=== PATIENT | female | born 1945 | race Caucasian/White ===

== ENCOUNTER 2018-03-03 19:05 | Inpatient (IN) | payer MEDICARE ==
[~2018-03-03] VITALS: Ht 154.9 cm; Wt 96.5 kg
--- NOTE | ~2018-03-03 | EC ---
PATIENT:GLEN CONNER DATE OF SERVICE: 03/03/18 SEX: F MEDICAL RECORD: [id number] DATE OF : [birth year] LOCATION:D.M2 D.210 AGE OF PATIENT: 72 ADMISSION DATE: 03/03/18 REFERRING PHYSICIAN: INTERPRETING PHYSICIAN: VICKI VILLEGAS MD ECHOCARDIOGRAM REPORT ECHO CHARGES 4 ECHO COMPLETE Date: 03/08 CLINICAL DIAGNOSIS: CHF ECHOCARDIOGRAPHIC MEASUREMENTS (adult normal given) AC root (d.<3.7cm) 3.4 cm LV Septum d (<1.2 cm> 1.6 cm Valve Excursion 1.1 cm LV Septum (systole) 1.8 cm Left Atria (s.<4.0cm> 4.5 cm LVPW d(<1.2cm) 1.7 cm RV (d.<2.3cm) 4.5 cm LVPW (sytole) 1.9 cm LV diastole(<5.6CM) 5.4 cm MV E-F(>70mm/sec) cm LV systole 3.6 cm LVOT Diameter 1.5 cm MV exc.(>10mm) 1.3 cm Est.ejection fraction (50-75%) % DOPPLER: LVIT cm/sec A 97.0 cm/sec E 168 cm/sec LA cm/sec RVSP 23 mmHg LVOT 128 cm/sec AOP1/2T m/s Asc. Ao 250 cm/sec RVOT cm/sec RA cm/sec PA 134 cm/sec AV Gradient Peak 25.01mmHg AV Mean 14.10mmHg AV Area 1.0 cm MV Gradient Peak 16.19mmHg MV Mean 4.26 mmHg MV Area cm COMMENTS: Administration Manager: Nishi KENYON Medical Insurance Biller: 2 Dr. Bergeron TAPE# PACS Pericardial Effusion N DATE OF SERVICE: 03/08/2018 PROCEDURE: Echocardiogram. FINDINGS: 1. Left ventricular chamber size is within normal limits. Left ventricular systolic function is normal. Overall ejection fraction estimated at 55% to 60%. 2. Left atrium is enlarged at 4.5 cm. Right atrium and right ventricle chamber sizes are as well moderately dilated. 3. Valvular structures have normal structure and motion. ECHOCARDIOGRAM REPORT [id number] GLEN CONNER 4. Doppler interrogation reveals mild aortic insufficiency, moderate mitral regurgitation, trace tricuspid regurgitation, no other valvular insufficiency or stenosis and pulmonary systolic pressure is estimated at 23 mmHg. 5. No evidence of pericardial effusion or left ventricular thrombus. TRANSINT:[id number] Voice Confirmation ID: [id number] DOCUMENT ID: [id number] VICKI VILLEGAS MD at 1230 CC: [id number] DICTATION DATE: 03/08/18 1554 SETTLEMENT CLERK: 03/08/18 1611 ADM IN [place] [id number] [place] [id number]
--- NOTE | ~2018-03-03 | MORECARE ---
CASE MANAGEMENT DISCHARGE SUMMARY PATIENT: GLEN CONNER UNIT: [id number] ADM DATE: 03/03/18 AGE: 72 : 45 SEX: F ROOM/BED: D.2109 AUTHOR: LILIYA, SAMPLE SUPERVISOR PHYSICIAN: REFERRING PHYSICIAN: HEATHER SURESH MD DATE OF SERVICE: 03/03/18 Discharge Plan Patient Name: GLEN CONNER [facility]: [facility] : 1945 Planned Disposition: Nursing Facility [facility] Cert Anticipated Discharge Date: 03/23/18 Discharge Date: Expected LOS: 20 Initial Reviewer: [email or web address] Initial Review Date: 03/09/2018 Generated: 03/23/18 12:16 pm Comments DCP- Discharge Planning Updated by [email or web address]: Sean Pete on 03/23/18 10:[address] Patient Name: GLEN CONNER Encounter No: [id number] : 1945 Primary Insurance: MEDICARE A & B Anticipated DC Date: 03-23-2018 Planned Disposition: Nursing Facility [facility] Cert External Planned Provider: [facility], MEDICARE REHAB [facility] DCP follow-up note: CM RECEIVED DISCHARGE ORDER, CALLED AND SPOKE TO [facility], THEY WILL SCHOOL AGE PROGRAM ASSOCIATE PT TODAY AT 1230 IN [place]. PT NOTIFIED, IN AGREEMENT WITH DISCHARGE BACK TO [facility]. CM FAXED DISCHARGE INFORMATION TO [facility] AT [phone], CALL NURSE REPORT TO [facility] AT [facility] AT [phone]. [facility] TO [facility] AGE PROGRAM ASSOCIATE FOR 1230 TODAY. LILIYA Sheldon DCP- Discharge Planning Updated by [id number]: Sean Pete on 03/22/18 3:[address] Patient Name: GLEN CONNER Encounter No: [id number] : 1945 Primary Insurance: MEDICARE A & B Anticipated DC Date: 03-23-2018 Planned Disposition: Nursing Facility [facility] Cert External Planned Provider: [facility], MEDICARE REHAB BED DCP follow-up note: CM CALLED AND LEFT MESSAGE FOR [facility], , NOTIFYING OF PLANNED DISCHARGE BACK TO ALF FACILITY TOMORROW, 03-23-18. CM FAXED REFERRAL UPDATE TO [facility] AT [phone]. CM SPOKE TO PT IN ROOM, PT IN AGREEMENT WITH DISCHARGE BACK TO [facility] TOMORROW. FOR DISHCHARGE BACK TO [facility] IN [place], FAX DISCHARGE INFORMATION TO [facility] AT [phone], CALL NURSE REPORT TO [facility] AT [phone]. [facility] TO [facility]OL AGE PROGRAM ASSOCIATE. Sean Pete, CASE MANAGEMENT DCP- Discharge Planning Updated by [id number]: Carolyn Vieira on 03/22/18 11:[address] SPOKE WITH AMY PHELPS, WITH [facility]. SHE STATED THAT THE PATIENT HAS A CHAIR OF [facility]-S AT [facility] @ 1100. SHE WILL PUT IN A NOTE TO THIS, BUT SHE ALSO STATED THAT IF THE PATIENT COULD NOT DISCHARGE BY TOMORROW WHERE SHE COULD ADMIT ON WEDNESDAY- THEN SHE WOULD NOT BE ABLE TO ADMIT TO THE DIALYSIS UNIT UNTIL WEDNESDAY OF THE NEXT WEEK. SHE SPOKE WITH DR BLEVINS AND HE IS OK WITH DISCHARGE TOMORROW. THE ABOVE INFORMATION RELAYED TO JOSE ELIAS FAJARDO APN WITH DR SURESH AND SHE STATED WILL PLAN TO DISCHARGE TOMORROW. DCP- Discharge Planning Updated by [id number]: Sean Pete on 03/21/18 3:[address] Patient Name: GLEN CONNER Encounter No: [id number] : 1945 Primary Insurance: MEDICARE A & B Anticipated DC Date: 03-22-2018 Planned Disposition: Nursing Facility [facility] External Planned Provider: [facility], MEDICARE REHAB BED DCP follow-up note: CM RECEIVED CALL FROM [facility] REQUESTING UPDATE. [facility] PREFERS MWF DIALYSIS SCHEDULE BUT THEY WILL ACCOMODATE TTS SCHEDULE IF MWF IS NOT AVAILABLE. CM FAXED REFERRAL UPDATE TO [facility] AT [phone]. CM SPOKE TO PT IN ROOM, PT IN AGREEMENT WITH DISCHARGE BACK TO [facility] WHERE SHE LIVES. IMPORTANT MESSAGE FROM MEDICARE PROVIDED AND DISCUSSED. FOR DISHCHARGE BACK TO [facility] IN [place], FAX DISCHARGE INFORMATION TO [facility] AT [phone], CALL NURSE REPORT TO [facility] AT [phone]. [facility] TO [facility]ANGE [facility] AGE PROGRAM ASSOCIATE. Sean Pete, CASE MANAGEMENT DCP- Discharge Planning Updated by [email or web address]: Iris Beal on 03/09/18 7:[address] Patient Name: GLEN CONNER Admission Status: CO Accout number: [id number] Admission Date: 03-03-2018 : 1945 Admission Diagnosis:SHORTNESS OF BREATH Attending: HEATHER SURESH Current LOS: 6 Anticipated DC Date: 03-12-2018 Planned Disposition: Nursing Facility [facility] Primary Insurance: MEDICARE A & B Discharge Planning Comments: CM MET WITH PATIENT REGARDING D/C NEEDS AND PLANS. PATIENT STATED SHE LIVES AT [facility] AND WILL RETURN THERE AT DISCHARGE BY FACILITY [place]. PATIENT STATED SHE SITS IN A WHEELCHAIR DAILY AND STAFF HELPS HER TRANSFER. PATIENT WAS RECENTLY IN HOSPITAL AT [place] AND WAS TRANSFERED HERE BY AMBULANCE. PATIENT WAS PUT ON OXYGEN THE LAST FEW DAYS. PATIENT STATED THE STAFF WILL [facility] HOME HEALTH NOT NEEDED IN FACILITY. PATIENT STATED JASON GIBSON (SISTER) IS THE PERSON TO NOTIFY IF NEEDED. CM WILL CONTINUE TO FOLLOW PATIENT WITH D/C NEEDS AND PLANS. PCP DR. CHEEMA [facility] JASONBrian GIBSON (SISTER) [phone] Production Manager: Iris Beal DCPIA - Discharge Planning Initial Assessment Updated by [id number]: Iris Beal on 03/09/18 7:57 am * Is the patient Alert and Oriented? Yes * How many steps to enterexit or inside your home? * PCP DR. CHEEMA * Pharmacy IN HOUSE * Preadmission Environment [employer] * ADLs Partial Dependent * Partial ADLs (Assistance needed) Ambulation Bathing Dressing Medication Management Toileting Transfers * Equipment Oxygen Wheelchair * Other Equipment [facility] IF NEEDED * List name and contact numbers for known caregivers / representatives who currently or will assist patient after discharge: JASON GIBSON (SISTER) [phone] * Verbal permission to speak to the caregivers and representatives has been obtained from the patient. Yes * Community resources currently utilized None * Additional services required to return to the preadmission environment? Yes * Can the patient safely return to the preadmission environment? Yes * Has this patient been hospitalized within the prior 30 days at any hospital? Yes External Providers External Provider: [facility] Next Contact Date: 03/22/2018 Service Request Date: Service Type: Resolution: Reviewer: Comments: Coverage Notice Reviewer: [email or web address] Clarence Pete Notice Issued Date-Time: 03/21/2018 14:25 Notice Type: IM Discharge Notice Notice Delivered To: Patient Relationship to Patient: Substation Electrician Supervisor Name: Delivery Method: HAND - Hand Delivered [place] Days: Prior Verbal Notification: Recipient Understood Notice: Yes Recipient Signature: Yes Med Rec Note Co-signed by Attending: Coverage Notice Comment: Patient Name: GLEN CONNRE Page [phone] All edits/amendments must be made on the electronic document DICTATION DATE: 03/23/181115 AEGIS OPERATIONS SPECIALIST: 03/23/181115 RPT#: [id number] DC DATE: STATUS: ADM IN [facility] [address] [place] [address] END OF REPORT
[2018-03-03 20:00] VITALS: BP 151/45
[2018-03-03 20:06] VITALS: BP 151/45
[2018-03-03] MEDS ORDERED: METOPROLOL TART50 MG PO (21:00)
[2018-03-03] MEDS ORDERED: METOLAZONE5 MG PO (21:00)
[2018-03-03] MEDS ORDERED: BUMEX2 MG PO (21:03)
[2018-03-03] MEDS ORDERED: COZAAR50 MG PO (21:04)
[2018-03-03] MEDS ORDERED: FUROSEMIDE10 MG/M1 IV (21:06)
[2018-03-03] MEDS ORDERED: ESTRACE1 MG PO (21:07)
[2018-03-03] MEDS ORDERED: LEVOTHYROXINE150 MCG PO (21:07)
[2018-03-03] MEDS ORDERED: LOPRESSOR25 MG PO (21:08)
[2018-03-03] MEDS ORDERED: ISOSORBIDE MONO30 M1 PO (21:09)
[2018-03-03] MEDS ORDERED: LASIX80 MG (21:10)
[2018-03-03] MEDS ORDERED: HUMULIN R100 U/ML SC (21:14)
[2018-03-03] MEDS ORDERED: GLIMEPIRIDE4 MG PO (21:18)
[2018-03-03] MEDS ORDERED: K-DUR20 MEQ (21:18)
[2018-03-03] MEDS ORDERED: ROCEPHIN 1 GM/D51 G1 IV (21:20)
[2018-03-03] MEDS ORDERED: BAYER CHEWABLE81 MG PO (21:21)
[2018-03-03] MEDS ORDERED: CALTRATE 600 M600 M1 PO (21:22)
[2018-03-03] MEDS ORDERED: MAG-OX 400 MG400 MG PO (21:22)
[2018-03-03] MEDS ORDERED: HYDROCODON-ACE1 EAC7 PO (21:23)
[2018-03-03] MEDS ORDERED: ONDANSETRON4 MG/2 M3 IV (21:24)
[2018-03-03] MEDS ORDERED: ROBITUSSIN DM 110 ML PO (21:25)
[2018-03-03] MEDS ORDERED: ACETAMINOPHEN500 M1 PO (21:26)
[2018-03-04] VITALS: BP 151/48
[2018-03-04 00:21] LABS: HEMATOCRIT 25.6 % (36.0-48.0); HEMOGLOBIN 8.2 g/dL (12-16); LYMPHOCYTES 4.3 % (15-50); MCH 27.1 pg (26.0-34.0); MCV 84.5 fL (80.0-100.0); NEUTROPHILS 89.8 % (40-80); PLATELET COUNT 235 10x3/uL (130-400); RBC 3.03 10x6/uL (4.00-5.40); WBC 15.2 10x3/uL (4.8-10.8)
[2018-03-04 00:51] LABS: ALBUMIN 2.3 g/dL (3.4-5.0); ANION GAP 9.6 mmol/L (8-16); BILIRUBIN - TOTAL 0.31 mg/dL (0.2-1.3); CALCIUM 8.3 mg/dL (8.5-10.1); CARBON DIOXIDE 36.2 mmol/L (21.0-32.0); CREATININE - SERUM 3.7 mg/dL (0.6-1.3); POTASSIUM - SERUM 3.8 mmol/L (3.5-5.1); PROTEIN - SERUM 7.3 g/dL (6.4-8.2)
[2018-03-04 04:29] LABS: BASOPHILS 0.1 % (0-2); EOSINOPHILS 1.9 % (0-7); HEMATOCRIT 26.4 % (36.0-48.0); IMMATURE GRANULOCYTES 0.4 % (0-5); LYMPHOCYTES 4.8 % (15-50); MCH 26.1 pg (26.0-34.0); MCHC 30.3 g/dL (31.0-37.0); MEAN PLATELET VOLUME 9.2 fL (7.4-10.4); NEUTROPHILS 86.8 % (40-80); PLATELET COUNT 215 10x3/uL (130-400); RBC 3.07 10x6/uL (4.00-5.40); RDW 14.9 % (11.5-14.5); WBC 15.2 10x3/uL (4.8-10.8)
[2018-03-04 04:55] VITALS: BP 122/45
[2018-03-04 04:55] LABS: ALBUMIN 2.2 g/dL (3.4-5.0); ANION GAP 10.5 mmol/L (8-16); BILIRUBIN - TOTAL 0.32 mg/dL (0.2-1.3); CALCIUM 8.4 mg/dL (8.5-10.1); CARBON DIOXIDE 34.1 mmol/L (21.0-32.0); CREATININE - SERUM 3.7 mg/dL (0.6-1.3); POTASSIUM - SERUM 3.6 mmol/L (3.5-5.1); PROTEIN - SERUM 7.1 g/dL (6.4-8.2)
[2018-03-04 09:23] VITALS: BP 146/59
[2018-03-04 11:50] VITALS: BP 117/78
[2018-03-04 12:24] VITALS: BMI 43.9
[2018-03-04 13:45] VITALS: Ht 154.9 cm; Wt 96.5 kg
[2018-03-04 14:34] LABS: APPEARANCE CLEAR (CLEAR); BILIRUBIN NEGATIVE (NEGATIVE); COLOR YELLOW (YELLOW); GLUCOSE NEGATIVE (NEGATIVE); KETONE NEGATIVE (NEGATIVE); NITRITE NEGATIVE (NEGATIVE); PROTEIN NEGATIVE (NEGATIVE); UROBILINOGEN NORMAL (NORMAL)
[2018-03-04 14:38] LABS: BACTERIA MODERATE /hpf (NONE SEEN); MUCUS <1+ /lpf (NONE SEEN); RED CELLS - URINE 0-5 /hpf (0-5)
[2018-03-04 15:00] LABS: ERYTHROCYTE SEDIMENTATION RATE 125 mm/hr (0-30)
[2018-03-04 15:03] LABS: CREATININE - URINE 39.5 mg/dL (30-125); PRO/CRE RATIO URINE 0.6 mg/g; PROTEIN - URINE 24.7 mg/dL (0.0-11.9)
[2018-03-04 15:48] VITALS: BP 138/52
[2018-03-04 21:37] VITALS: BP 145/52
[2018-03-05 01:32] VITALS: BP 144/52
[2018-03-05 06:11] VITALS: BP 125/45
[2018-03-05 09:07] VITALS: BP 111/41
[2018-03-05 09:52] LABS: BASOPHILS 0.1 % (0-2); EOSINOPHILS 3.5 % (0-7); HEMATOCRIT 25.7 % (36.0-48.0); HEMOGLOBIN 7.9 g/dL (12-16); IMMATURE GRANULOCYTES 0.4 % (0-5); LYMPHOCYTES 4.7 % (15-50); MCH 26.2 pg (26.0-34.0); MCHC 30.7 g/dL (31.0-37.0); MCV 85.4 fL (80.0-100.0); MEAN PLATELET VOLUME 9.3 fL (7.4-10.4); MONOCYTES 4.5 % (2-11); NEUTROPHILS 86.8 % (40-80); PLATELET COUNT 239 10x3/uL (130-400); RBC 3.01 10x6/uL (4.00-5.40); RDW 14.5 % (11.5-14.5); WBC 13.9 10x3/uL (4.8-10.8)
[2018-03-05 10:16] LABS: ANION GAP 10.5 mmol/L (8-16); CALCIUM 8.2 mg/dL (8.5-10.1); CARBON DIOXIDE 35.1 mmol/L (21.0-32.0); CREATININE - SERUM 3.6 mg/dL (0.6-1.3); POTASSIUM - SERUM 3.6 mmol/L (3.5-5.1)
[2018-03-05 12:29] VITALS: BP 130/36
[2018-03-05 16:54] VITALS: BP 117/33
[2018-03-05 20:51] VITALS: BP 139/37
[2018-03-06 00:37] VITALS: BP 131/40
[2018-03-06 06:06] VITALS: BP 150/37
[2018-03-06 08:48] VITALS: BP 166/45
[2018-03-06 09:16] LABS: BASOPHILS 0.2 % (0-2); HEMATOCRIT 25.4 % (36.0-48.0); HEMOGLOBIN 7.9 g/dL (12-16); IMMATURE GRANULOCYTES 0.4 % (0-5); LYMPHOCYTES 3.6 % (15-50); MCH 26.4 pg (26.0-34.0); MCHC 31.1 g/dL (31.0-37.0); MCV 84.9 fL (80.0-100.0); MEAN PLATELET VOLUME 8.5 fL (7.4-10.4); MONOCYTES 6.4 % (2-11); NEUTROPHILS 86.4 % (40-80); PLATELET COUNT 221 10x3/uL (130-400); RBC 2.99 10x6/uL (4.00-5.40); RDW 14.7 % (11.5-14.5); WBC 13.4 10x3/uL (4.8-10.8)
[2018-03-06 09:34] LABS: ALBUMIN 2.1 g/dL (3.4-5.0); ANION GAP 6.4 mmol/L (8-16); BILIRUBIN - TOTAL 0.25 mg/dL (0.2-1.3); CALCIUM 8.5 mg/dL (8.5-10.1); CARBON DIOXIDE 37.2 mmol/L (21.0-32.0); CREATININE - SERUM 3.5 mg/dL (0.6-1.3); POTASSIUM - SERUM 3.6 mmol/L (3.5-5.1); PROTEIN - SERUM 7.2 g/dL (6.4-8.2)
[2018-03-06 11:58] VITALS: BP 152/52
[2018-03-06 17:09] VITALS: BP 169/55
[2018-03-06 20:30] VITALS: BP 152/45
[2018-03-07 00:30] VITALS: BP 134/40
[2018-03-07 04:30] VITALS: BP 169/45
[2018-03-07 04:53] LABS: BASOPHILS 0.2 % (0-2); EOSINOPHILS 4.6 % (0-7); HEMATOCRIT 24.7 % (36.0-48.0); HEMOGLOBIN 7.6 g/dL (12-16); IMMATURE GRANULOCYTES 0.4 % (0-5); LYMPHOCYTES 5.3 % (15-50); MCHC 30.8 g/dL (31.0-37.0); MCV 84.6 fL (80.0-100.0); MEAN PLATELET VOLUME 9.1 fL (7.4-10.4); MONOCYTES 5.8 % (2-11); NEUTROPHILS 83.7 % (40-80); PLATELET COUNT 244 10x3/uL (130-400); RBC 2.92 10x6/uL (4.00-5.40); RDW 14.5 % (11.5-14.5); WBC 11.9 10x3/uL (4.8-10.8)
[2018-03-07 05:44] LABS: ALBUMIN 2.1 g/dL (3.4-5.0); ANION GAP 10.5 mmol/L (8-16); BILIRUBIN - TOTAL 0.24 mg/dL (0.2-1.3); CALCIUM 8.3 mg/dL (8.5-10.1); CARBON DIOXIDE 36.1 mmol/L (21.0-32.0); CREATININE - SERUM 3.2 mg/dL (0.6-1.3); POTASSIUM - SERUM 3.6 mmol/L (3.5-5.1); PROTEIN - SERUM 7.1 g/dL (6.4-8.2)
[2018-03-07 06:02] LABS: % SATURATION 14 % (15-55); IRON 29 ug/dl (35-150); TOTAL IRON BIND CAPACITY 205 ug/dl (260-445); UNSAT IRON BIND CAPACITY 176 ug/dl (150-375)
[2018-03-07 09:39] VITALS: BP 123/105
[2018-03-07 17:09] VITALS: BP 158/47
[2018-03-07 20:00] VITALS: BP 118/52
[2018-03-08] VITALS: BP 164/36
[2018-03-08 04:00] VITALS: BP 156/41
[2018-03-08 05:55] LABS: BASOPHILS 0.1 % (0-2); EOSINOPHILS 2.8 % (0-7); HEMATOCRIT 26.6 % (36.0-48.0); HEMOGLOBIN 8.2 g/dL (12-16); IMMATURE GRANULOCYTES 0.6 % (0-5); LYMPHOCYTES 3.6 % (15-50); MCH 26.3 pg (26.0-34.0); MCHC 30.8 g/dL (31.0-37.0); MCV 85.3 fL (80.0-100.0); MEAN PLATELET VOLUME 9.5 fL (7.4-10.4); MONOCYTES 4.9 % (2-11); PLATELET COUNT 254 10x3/uL (130-400); RBC 3.12 10x6/uL (4.00-5.40); RDW 14.6 % (11.5-14.5); WBC 13.7 10x3/uL (4.8-10.8)
[2018-03-08 06:43] LABS: ALBUMIN 2.1 g/dL (3.4-5.0); BILIRUBIN - TOTAL 0.31 mg/dL (0.2-1.3); CALCIUM 8.2 mg/dL (8.5-10.1); CARBON DIOXIDE 34.8 mmol/L (21.0-32.0); CREATININE - SERUM 3.1 mg/dL (0.6-1.3); POTASSIUM - SERUM 3.8 mmol/L (3.5-5.1); PROTEIN - SERUM 6.3 g/dL (6.4-8.2)
[2018-03-08 08:21] VITALS: BP 172/51
[2018-03-08 11:14] LABS: FOLATE (FOLIC ACID) - SERUM 10.2 ng/mL (>3.0)
[2018-03-08 11:47] VITALS: BP 182/50
[2018-03-08 16:30] VITALS: BP 152/40
[2018-03-08 20:49] VITALS: BP 139/29
[2018-03-09] VITALS (11 sets, daily range): BP systolic 109–153; BP diastolic 24–77
[2018-03-09 06:31] LABS: BASOPHILS 0.1 % (0-2); EOSINOPHILS 4.7 % (0-7); HEMATOCRIT 26.3 % (36.0-48.0); HEMOGLOBIN 8.3 g/dL (12-16); IMMATURE GRANULOCYTES 0.4 % (0-5); MCH 26.5 pg (26.0-34.0); MCHC 31.6 g/dL (31.0-37.0); MEAN PLATELET VOLUME 9.4 fL (7.4-10.4); MONOCYTES 6.2 % (2-11); NEUTROPHILS 84.6 % (40-80); PLATELET COUNT 259 10x3/uL (130-400); RBC 3.13 10x6/uL (4.00-5.40); RDW 14.7 % (11.5-14.5); WBC 12.6 10x3/uL (4.8-10.8)
[2018-03-09 07:05] LABS: ALBUMIN 2.1 g/dL (3.4-5.0); ANION GAP 9.9 mmol/L (8-16); BILIRUBIN - TOTAL 0.26 mg/dL (0.2-1.3); CALCIUM 8.5 mg/dL (8.5-10.1); CARBON DIOXIDE 34.7 mmol/L (21.0-32.0); POTASSIUM - SERUM 3.6 mmol/L (3.5-5.1); PROTEIN - SERUM 6.4 g/dL (6.4-8.2)
[2018-03-10 00:31] VITALS: BP 116/49
[2018-03-10 04:37] VITALS: BP 136/42
[2018-03-10 05:25] LABS: BASOPHILS 0.2 % (0-2); EOSINOPHILS 2.3 % (0-7); HEMATOCRIT 26.3 % (36.0-48.0); HEMOGLOBIN 8.2 g/dL (12-16); IMMATURE GRANULOCYTES 0.6 % (0-5); LYMPHOCYTES 2.7 % (15-50); MCH 26.5 pg (26.0-34.0); MCHC 31.2 g/dL (31.0-37.0); MCV 85.1 fL (80.0-100.0); MEAN PLATELET VOLUME 9.5 fL (7.4-10.4); MONOCYTES 8.1 % (2-11); NEUTROPHILS 86.1 % (40-80); PLATELET COUNT 277 10x3/uL (130-400); RBC 3.09 10x6/uL (4.00-5.40); RDW 14.7 % (11.5-14.5); WBC 11.3 10x3/uL (4.8-10.8)
[2018-03-10 05:50] LABS: ANION GAP 10.7 mmol/L (8-16); BILIRUBIN - TOTAL 0.33 mg/dL (0.2-1.3); CALCIUM 8.5 mg/dL (8.5-10.1); CARBON DIOXIDE 34.4 mmol/L (21.0-32.0); POTASSIUM - SERUM 4.1 mmol/L (3.5-5.1); PROTEIN - SERUM 7.1 g/dL (6.4-8.2)
[2018-03-10 07:52] VITALS: BP 144/40
[2018-03-10 09:19] LABS: UPE RAND - ALBUMIN 46.5 % (()); UPE RAND - ALPHA 1 GLOBULIN 3.6 % (()); UPE RAND - ALPHA 2 GLOBULIN 6.6 % (()); UPE RAND - BETA GLOBULIN 19.9 % (()); UPE RAND - GAMMA GLOBULIN 23.5 % (())
[2018-03-10 18:08] LABS: SPE - A/G RATIO 0.6 (0.7-1.7); SPE - ALBUMIN 2.4 g/dL (2.9-4.4); SPE - ALPHA-1 GLOBULIN 0.5 g/dL (0.0-0.4); SPE - ALPHA-2 GLOBULIN 0.8 g/dL (0.4-1.0); SPE - BETA GLOBULIN 0.7 g/dL (0.7-1.3); SPE - GAMMA GLOBULIN 1.9 g/dL (0.4-1.8); SPE - M-SPIKE Not Observed g/dL (Not Observed); SPE - TOTAL PROTEIN 6.3 g/dL (6.0-8.5)
[2018-03-10 21:39] VITALS: BP 162/40
[2018-03-11 01:29] VITALS: BP 139/29
[2018-03-11 04:30] VITALS: BP 178/50
[2018-03-11 07:28] LABS: BASOPHILS 0.2 % (0-2); EOSINOPHILS 4.9 % (0-7); IMMATURE GRANULOCYTES 0.5 % (0-5); LYMPHOCYTES 8.2 % (15-50); MCH 26.4 pg (26.0-34.0); MEAN PLATELET VOLUME 9.3 fL (7.4-10.4); MONOCYTES 6.3 % (2-11); NEUTROPHILS 79.9 % (40-80); PLATELET COUNT 248 10x3/uL (130-400); RBC 3.41 10x6/uL (4.00-5.40); RDW 15.2 % (11.5-14.5); WBC 10.1 10x3/uL (4.8-10.8)
[2018-03-11 07:52] LABS: ALBUMIN 2.1 g/dL (3.4-5.0); ANION GAP 8.2 mmol/L (8-16); BILIRUBIN - TOTAL 0.32 mg/dL (0.2-1.3); CALCIUM 8.5 mg/dL (8.5-10.1); CARBON DIOXIDE 33.3 mmol/L (21.0-32.0); CREATININE - SERUM 2.3 mg/dL (0.6-1.3); POTASSIUM - SERUM 3.5 mmol/L (3.5-5.1); PROTEIN - SERUM 7.1 g/dL (6.4-8.2)
[2018-03-11 08:03] VITALS: BP 189/45
[2018-03-11 11:17] LABS: HEP B CORE AB TOTAL Negative (Negative); HEPATITIS C ANTIBODY <0.1 (0.0-0.9)
[2018-03-11 15:39] VITALS: BP 128/25
[2018-03-11 20:31] VITALS: BP 146/36
[2018-03-12 01:10] VITALS: BP 147/40
[2018-03-12 04:00] VITALS: BP 129/34
[2018-03-12 04:45] LABS: BASOPHILS 0.3 % (0-2); EOSINOPHILS 3.7 % (0-7); HEMATOCRIT 32.3 % (36.0-48.0); HEMOGLOBIN 9.9 g/dL (12-16); LYMPHOCYTES 9.1 % (15-50); MCH 26.3 pg (26.0-34.0); MCHC 30.7 g/dL (31.0-37.0); MCV 85.9 fL (80.0-100.0); MEAN PLATELET VOLUME 9.3 fL (7.4-10.4); MONOCYTES 8.8 % (2-11); NEUTROPHILS 77.1 % (40-80); PLATELET COUNT 258 10x3/uL (130-400); RBC 3.76 10x6/uL (4.00-5.40); RDW 14.9 % (11.5-14.5); WBC 9.4 10x3/uL (4.8-10.8)
[2018-03-12 04:58] LABS: ANION GAP 10.2 mmol/L (8-16); CALCIUM 8.7 mg/dL (8.5-10.1); CARBON DIOXIDE 29.5 mmol/L (21.0-32.0); CREATININE - SERUM 2.1 mg/dL (0.6-1.3); POTASSIUM - SERUM 3.7 mmol/L (3.5-5.1)
[2018-03-12 08:05] VITALS: BP 134/43
[2018-03-12 16:14] VITALS: BP 149/36
[2018-03-12 21:26] VITALS: BP 166/49
[2018-03-13 00:45] VITALS: BP 130/46
[2018-03-13 05:22] LABS: BASOPHILS 0.4 % (0-2); EOSINOPHILS 3.1 % (0-7); HEMATOCRIT 30.3 % (36.0-48.0); HEMOGLOBIN 9.4 g/dL (12-16); LYMPHOCYTES 9.1 % (15-50); MCH 26.6 pg (26.0-34.0); MCV 85.6 fL (80.0-100.0); MEAN PLATELET VOLUME 9.2 fL (7.4-10.4); MONOCYTES 8.3 % (2-11); NEUTROPHILS 78.1 % (40-80); PLATELET COUNT 257 10x3/uL (130-400); RBC 3.54 10x6/uL (4.00-5.40); RDW 14.7 % (11.5-14.5); WBC 9.1 10x3/uL (4.8-10.8)
[2018-03-13 05:43] LABS: ANION GAP 10.8 mmol/L (8-16); CALCIUM 8.6 mg/dL (8.5-10.1); CARBON DIOXIDE 28.7 mmol/L (21.0-32.0); CREATININE - SERUM 2.2 mg/dL (0.6-1.3); POTASSIUM - SERUM 3.5 mmol/L (3.5-5.1)
[2018-03-13 06:29] VITALS: BP 153/41
[2018-03-13 08:53] VITALS: BP 121/29
[2018-03-13 12:02] VITALS: BP 135/62
[2018-03-13 15:31] VITALS: BP 111/42
[2018-03-13 22:11] VITALS: BP 141/44
[2018-03-14 00:41] VITALS: BP 124/42
[2018-03-14 03:27] LABS: BASOPHILS 0.3 % (0-2); HEMATOCRIT 30.2 % (36.0-48.0); HEMOGLOBIN 9.5 g/dL (12-16); IMMATURE GRANULOCYTES 0.9 % (0-5); LYMPHOCYTES 6.3 % (15-50); MCH 26.5 pg (26.0-34.0); MCHC 31.5 g/dL (31.0-37.0); MCV 84.4 fL (80.0-100.0); MEAN PLATELET VOLUME 9.3 fL (7.4-10.4); MONOCYTES 10.4 % (2-11); NEUTROPHILS 77.1 % (40-80); PLATELET COUNT 248 10x3/uL (130-400); RBC 3.58 10x6/uL (4.00-5.40); RDW 14.8 % (11.5-14.5)
[2018-03-14 03:55] LABS: WBC 11.5 10x3/uL (4.8-10.8)
[2018-03-14 03:59] LABS: INR 1.27 (0.85-1.17); PROTIME 15.5 SECONDS (11.6-15.0)
[2018-03-14 04:40] LABS: ANION GAP 11.4 mmol/L (8-16); CALCIUM 8.7 mg/dL (8.5-10.1); CARBON DIOXIDE 27.1 mmol/L (21.0-32.0); POTASSIUM - SERUM 3.5 mmol/L (3.5-5.1)
[2018-03-14 04:41] LABS: CREATININE - SERUM 3.1 mg/dL (0.6-1.3)
[2018-03-14 05:34] VITALS: BP 110/40
[2018-03-14 07:56] VITALS: BP 132/71
[2018-03-14 15:18] VITALS: BP 136/66
[2018-03-14 20:00] VITALS: BP 169/54
[2018-03-15 04:00] VITALS: BP 153/47
[2018-03-15 06:46] LABS: BASOPHILS 0.2 % (0-2); EOSINOPHILS 3.3 % (0-7); IMMATURE GRANULOCYTES 0.7 % (0-5); MCH 26.4 pg (26.0-34.0); MCHC 31.3 g/dL (31.0-37.0); MCV 84.4 fL (80.0-100.0); MEAN PLATELET VOLUME 9.2 fL (7.4-10.4); MONOCYTES 7.5 % (2-11); NEUTROPHILS 83.3 % (40-80); PLATELET COUNT 250 10x3/uL (130-400); RBC 3.79 10x6/uL (4.00-5.40); WBC 13.6 10x3/uL (4.8-10.8)
[2018-03-15 06:59] LABS: ANION GAP 12.5 mmol/L (8-16); CALCIUM 8.4 mg/dL (8.5-10.1); CARBON DIOXIDE 28.2 mmol/L (21.0-32.0); CREATININE - SERUM 2.7 mg/dL (0.6-1.3); POTASSIUM - SERUM 3.7 mmol/L (3.5-5.1)
[2018-03-15 08:34] VITALS: BP 148/62
[2018-03-15 12:38] VITALS: BP 113/53
[2018-03-15 16:07] VITALS: BP 134/80
[2018-03-15 20:00] VITALS: BP 117/51
[2018-03-16] VITALS: BP 124/55
[2018-03-16 04:00] VITALS: BP 154/58
[2018-03-16 06:37] LABS: BASOPHILS 0.2 % (0-2); EOSINOPHILS 3.6 % (0-7); HEMATOCRIT 29.9 % (36.0-48.0); HEMOGLOBIN 9.4 g/dL (12-16); IMMATURE GRANULOCYTES 0.7 % (0-5); LYMPHOCYTES 6.5 % (15-50); MCH 26.5 pg (26.0-34.0); MCHC 31.4 g/dL (31.0-37.0); MCV 84.2 fL (80.0-100.0); MEAN PLATELET VOLUME 9.9 fL (7.4-10.4); MONOCYTES 6.4 % (2-11); NEUTROPHILS 82.6 % (40-80); PLATELET COUNT 291 10x3/uL (130-400); RBC 3.55 10x6/uL (4.00-5.40); RDW 15.1 % (11.5-14.5); WBC 12.1 10x3/uL (4.8-10.8)
[2018-03-16 07:27] LABS: ANION GAP 13.4 mmol/L (8-16); CALCIUM 8.4 mg/dL (8.5-10.1); CARBON DIOXIDE 27.2 mmol/L (21.0-32.0); CREATININE - SERUM 3.2 mg/dL (0.6-1.3); POTASSIUM - SERUM 3.6 mmol/L (3.5-5.1)
[2018-03-16 08:36] VITALS: BP 146/58
[2018-03-16 20:00] VITALS: BP 109/43
[2018-03-17 04:00] VITALS: BP 120/45
[2018-03-17 08:17] VITALS: BP 121/39
[2018-03-17 11:56] VITALS: BP 114/32
[2018-03-17 13:04] LABS: ANION GAP 10.9 mmol/L (8-16); CALCIUM 8.2 mg/dL (8.5-10.1); CARBON DIOXIDE 28.8 mmol/L (21.0-32.0); CREATININE - SERUM 2.7 mg/dL (0.6-1.3)
[2018-03-17 13:09] LABS: POTASSIUM - SERUM 4.7 mmol/L (3.5-5.1)
[2018-03-17 15:33] VITALS: BP 115/51
[2018-03-17 21:09] VITALS: BP 139/45
[2018-03-18 01:28] VITALS: BP 126/54
[2018-03-18 05:26] LABS: ANION GAP 10.5 mmol/L (8-16); CALCIUM 8.1 mg/dL (8.5-10.1); CARBON DIOXIDE 28.2 mmol/L (21.0-32.0); CREATININE - SERUM 2.4 mg/dL (0.6-1.3)
[2018-03-18 05:27] LABS: POTASSIUM - SERUM 3.7 mmol/L (3.5-5.1)
[2018-03-18 05:39] VITALS: BP 129/61
[2018-03-18 08:16] VITALS: BP 141/59
[2018-03-18 15:31] VITALS: BP 115/34
[2018-03-18 20:00] VITALS: BP 110/45
[2018-03-19] VITALS: BP 120/33
[2018-03-19 04:00] VITALS: BP 127/45
[2018-03-19 05:33] LABS: BASOPHILS 0.3 % (0-2); EOSINOPHILS 3.3 % (0-7); HEMATOCRIT 30.6 % (36.0-48.0); HEMOGLOBIN 9.5 g/dL (12-16); IMMATURE GRANULOCYTES 0.6 % (0-5); LYMPHOCYTES 5.6 % (15-50); MCH 26.6 pg (26.0-34.0); MCV 85.7 fL (80.0-100.0); MEAN PLATELET VOLUME 9.7 fL (7.4-10.4); MONOCYTES 9.9 % (2-11); NEUTROPHILS 80.3 % (40-80); PLATELET COUNT 290 10x3/uL (130-400); RBC 3.57 10x6/uL (4.00-5.40); RDW 15.7 % (11.5-14.5); WBC 11.6 10x3/uL (4.8-10.8)
[2018-03-19 06:05] LABS: ANION GAP 10.5 mmol/L (8-16); CALCIUM 8.1 mg/dL (8.5-10.1); CARBON DIOXIDE 26.7 mmol/L (21.0-32.0); CHOL - HDL RATIO 4.2 ratio (2.3-4.1); CREATININE - SERUM 2.7 mg/dL (0.6-1.3); LDL-HDL RATIO 2.5 ratio (1.5-3.5); POTASSIUM - SERUM 4.2 mmol/L (3.5-5.1)
[2018-03-19 08:57] VITALS: BP 126/77
[2018-03-19 11:51] VITALS: BP 132/73
[2018-03-19 15:51] VITALS: BP 128/69
[2018-03-19 20:00] VITALS: BP 113/39
[2018-03-20 04:00] VITALS: BP 108/37
[2018-03-20 05:33] LABS: BASOPHILS 0.4 % (0-2); HEMATOCRIT 28.3 % (36.0-48.0); HEMOGLOBIN 8.8 g/dL (12-16); IMMATURE GRANULOCYTES 0.8 % (0-5); LYMPHOCYTES 9.2 % (15-50); MCH 26.3 pg (26.0-34.0); MCHC 31.1 g/dL (31.0-37.0); MCV 84.5 fL (80.0-100.0); MEAN PLATELET VOLUME 9.5 fL (7.4-10.4); MONOCYTES 7.1 % (2-11); NEUTROPHILS 78.5 % (40-80); PLATELET COUNT 264 10x3/uL (130-400); RBC 3.35 10x6/uL (4.00-5.40); RDW 15.8 % (11.5-14.5); WBC 11.2 10x3/uL (4.8-10.8)
[2018-03-20 05:43] LABS: ANION GAP 11.9 mmol/L (8-16); CALCIUM 8.5 mg/dL (8.5-10.1); CARBON DIOXIDE 25.4 mmol/L (21.0-32.0); CREATININE - SERUM 3.2 mg/dL (0.6-1.3); POTASSIUM - SERUM 4.3 mmol/L (3.5-5.1)
[2018-03-20 08:55] VITALS: BP 137/55
[2018-03-20 11:46] VITALS: BP 129/41
[2018-03-20 20:15] VITALS: BP 120/52
[2018-03-21 00:05] VITALS: BP 161/58
[2018-03-21 05:10] LABS: BASOPHILS 0.3 % (0-2); HEMATOCRIT 27.5 % (36.0-48.0); HEMOGLOBIN 8.7 g/dL (12-16); IMMATURE GRANULOCYTES 0.4 % (0-5); LYMPHOCYTES 8.1 % (15-50); MCH 26.2 pg (26.0-34.0); MCHC 31.6 g/dL (31.0-37.0); MCV 82.8 fL (80.0-100.0); MEAN PLATELET VOLUME 9.5 fL (7.4-10.4); MONOCYTES 6.7 % (2-11); NEUTROPHILS 80.5 % (40-80); PLATELET COUNT 294 10x3/uL (130-400); RBC 3.32 10x6/uL (4.00-5.40); RDW 15.9 % (11.5-14.5)
[2018-03-21 05:25] VITALS: BP 120/43
[2018-03-21 05:38] LABS: ANION GAP 11.9 mmol/L (8-16); CALCIUM 8.5 mg/dL (8.5-10.1); CARBON DIOXIDE 25.7 mmol/L (21.0-32.0); CREATININE - SERUM 3.3 mg/dL (0.6-1.3); POTASSIUM - SERUM 4.6 mmol/L (3.5-5.1)
[2018-03-21 08:46] VITALS: BP 118/32
[2018-03-21 12:06] VITALS: BP 120/33
[2018-03-21 16:20] VITALS: BP 137/43
[2018-03-21 20:05] VITALS: BP 171/58
[2018-03-22 01:29] VITALS: BP 142/46
[2018-03-22 05:35] VITALS: BP 151/78
[2018-03-22 05:58] LABS: BASOPHILS 0.4 % (0-2); EOSINOPHILS 3.3 % (0-7); HEMATOCRIT 26.1 % (36.0-48.0); HEMOGLOBIN 8.4 g/dL (12-16); IMMATURE GRANULOCYTES 0.6 % (0-5); LYMPHOCYTES 9.9 % (15-50); MCH 26.4 pg (26.0-34.0); MCHC 32.2 g/dL (31.0-37.0); MCV 82.1 fL (80.0-100.0); MEAN PLATELET VOLUME 9.4 fL (7.4-10.4); MONOCYTES 7.5 % (2-11); NEUTROPHILS 78.3 % (40-80); PLATELET COUNT 284 10x3/uL (130-400); RBC 3.18 10x6/uL (4.00-5.40); RDW 16.1 % (11.5-14.5)
[2018-03-22 06:27] LABS: ANION GAP 15.6 mmol/L (8-16); CALCIUM 7.8 mg/dL (8.5-10.1); CARBON DIOXIDE 23.2 mmol/L (21.0-32.0); CREATININE - SERUM 3.6 mg/dL (0.6-1.3); PHOSPHOROUS 6.6 mg/dL (2.5-4.9); POTASSIUM - SERUM 4.8 mmol/L (3.5-5.1)
[2018-03-22 08:27] VITALS: BP 139/56
[2018-03-22 11:36] VITALS: BP 144/54
[2018-03-22 16:23] VITALS: BP 106/44
[2018-03-22 20:30] VITALS: BP 119/39
[2018-03-23 01:26] VITALS: BP 115/36
[2018-03-23 05:39] VITALS: BP 134/49
[2018-03-23 05:59] LABS: BASOPHILS 0.4 % (0-2); EOSINOPHILS 2.2 % (0-7); HEMATOCRIT 27.7 % (36.0-48.0); HEMOGLOBIN 8.9 g/dL (12-16); IMMATURE GRANULOCYTES 0.9 % (0-5); LYMPHOCYTES 5.7 % (15-50); MCH 26.9 pg (26.0-34.0); MCHC 32.1 g/dL (31.0-37.0); MCV 83.7 fL (80.0-100.0); MEAN PLATELET VOLUME 10.2 fL (7.4-10.4); NEUTROPHILS 81.8 % (40-80); PLATELET COUNT 294 10x3/uL (130-400); RBC 3.31 10x6/uL (4.00-5.40); RDW 16.4 % (11.5-14.5); WBC 9.5 10x3/uL (4.8-10.8)
[2018-03-23 06:28] LABS: ANION GAP 13.7 mmol/L (8-16); CALCIUM 8.2 mg/dL (8.5-10.1); CARBON DIOXIDE 25.2 mmol/L (21.0-32.0); PHOSPHOROUS 5.4 mg/dL (2.5-4.9); POTASSIUM - SERUM 4.9 mmol/L (3.5-5.1)
[2018-03-23 06:29] LABS: CREATININE - SERUM 2.5 mg/dL (0.6-1.3)
[2018-03-23 07:45] VITALS: BP 136/43
[2018-03-23] MEDS ORDERED: DULCOLAX10 MG/SUPP RC (09:36)
[2018-03-23] MEDS ORDERED: PROTONIX40 MG PO (09:37)
[2018-03-23] MEDS ORDERED: MIRALAX17 GM PO (09:37)
[2018-03-23 11:22] VITALS: BP 119/40
== END 2018-03-23 13:35 | DRG 291 ==
LOC: D.M2 19:05
PROVIDERS: Family Medicine; Internal Medicine Nephrology; Radiology Diagnostic Radiology
PROC: 05HC33Z Insertion of Infusion Device into Left Basilic Vein, Percutaneous Approach (ICD-10-PCS; principal; 2018-03-06)
PROC: B54NZZA Ultrasonography of Left Upper Extremity Veins, Guidance (ICD-10-PCS; 2018-03-06)
PROC: 0JH63XZ Insertion of Tunneled Vascular Access Device into Chest Subcutaneous Tissue and Fascia, Percutaneous Approach (ICD-10-PCS; 2018-03-09)
PROC: 02HV33Z Insertion of Infusion Device into Superior Vena Cava, Percutaneous Approach (ICD-10-PCS; 2018-03-09)
PROC: 0TB03ZX Excision of Right Kidney, Percutaneous Approach, Diagnostic (ICD-10-PCS; 2018-03-15)
DX: I13.0 Hypertensive heart and chronic kidney disease with heart failure and stage 1 through stage 4 chronic kidney disease, or unspecified chronic kidney disease (principal); I50.33 Acute on chronic diastolic (congestive) heart failure; N39.0 Urinary tract infection, site not specified; N17.9 Acute kidney failure, unspecified; Z68.41 Body mass index [BMI] 40.0-44.9, adult; N18.9 Chronic kidney disease, unspecified; E11.22 Type 2 diabetes mellitus with diabetic chronic kidney disease; E11.65 Type 2 diabetes mellitus with hyperglycemia; D63.1 Anemia in chronic kidney disease; E66.01 Morbid (severe) obesity due to excess calories

== ENCOUNTER 2018-06-10 06:52 | Day surgery (SDC) | payer MEDICARE ==
[~2018-06-10] VITALS: Ht 154.9 cm; Wt 70.9 kg
--- NOTE | ~2018-06-10 | OP ---
PATIENT NAME: GLEN CONNER MEDICAL RECORD: [id number] :[birth year] LOCATION:D. D.2133 ADMISSION DATE: SURGEON: ERROL CAMARENA MD DATE OF OPERATION: 06/10/2018 PREOPERATIVE DIAGNOSIS: End-stage renal disease without chronic access for hemodialysis. POSTOPERATIVE DIAGNOSIS: End-stage renal disease without chronic access for hemodialysis. PROCEDURE: Placement of right upper extremity 6-mm looped PTFE graft for hemodialysis access. SURGEON: rErol Camarena MD MOTOR BUILDER WINDER: None. BLOOD LOSS: 100 cc. ANESTHESIA: General. COMPLICATIONS: None. The risks, possible complications, and alternatives to the procedure were explained to the patient. She elects to proceed. OPERATIVE COURSE: The patient was conveyed to the operating room electively on 06/10/2018. She has had a blood draw today at the right cubital fossa. I interrogated the right upper extremity with the hand-held ultrasound. It did not reveal any significant cephalic vein in the forearm or in the arm. The basilic vein was marginal as well, although a little bit larger, but it was fairly deep. I elected to perform a graft procedure. I left reinforcing rings on the graft as she is going to be prone to kinking off of the graft due to the laxity of the tissues in her upper arm. An axial incision was accomplished on the medial aspect of the right upper extremity proximal to the elbow. Sharp dissection was carried down to the level of paired brachial arteries, one was minute and the other one was moderately sized. I then controlled the larger one with vessel loops. There were paired basilic veins. One of the basilic veins was controlled with vessel loops. I then tunneled a 6-mm PTFE graft through 2 counterincisions, one in the distal arm and one in the proximal arm and both of these were lateral incisions. During the tunneling process, there was no apparent kinking or twisting of the graft. intravenous heparin was given. A small arteriotomy was accomplished. A side-to-end ullrzhye-ns-zmvxr anastomosis was then fashioned with a running 6-0 Prolene. I then flushed out through the graft. The other end of the graft was bevelled. A longitudinal venotomy was accomplished. An end-to-side pwxhm-up-sgligh anastomosis was then accomplished OPERATIVE REPORT [id number] GLEN CONNER with a running 6-0 Prolene suture. I then released control on the graft. There was minimal bleeding. There was an excellent thrill within the graft. Doppler signal could be heard in the radial and ulnar arteries at the wrist. A topical hemostatic agent was used in the wound. A 10-Lebanese drain was placed in the base of the wound. The subcutaneous tissues were approximated with interrupted 3-0 Vicryls. The skin was approximated with a running intracuticular 3-0 Vicryl. I then reinforced the suture line with some horizontal mattress 4-0 Vicryl Rapide sutures. The counterincisions were closed with interrupted 3-0 Vicryls in an intracuticular fashion. All the operative sites were sealed then with Dermabond. The drain was sutured to the skin with a 2-0 nylon. There was a skin tear that occurred during the prep process and I was able to place the skin flaps over the torn area. These were then glued in place with Dermabond. The patient was then extubated and conveyed to the post-anesthesia care unit where she was in stable condition. She had good motor function in the right upper extremity. She had a good waveform on the pulse oximeter and a 97% oxygen saturation on a finger of the right hand. We are waiting to see whether she can get a ride back to [place] today or whether she will need to be placed in observation bed. TRANSINT:[id number] Voice Confirmation ID: [id number] DOCUMENT ID: [id number] ERROL CAMARENA MD at 1645 CC: LUH CHANG MD [id number] DICTATION DATE: 06/10/18 141 HELICOPTER PILOT: 06/10/[address] [facility] [address] [place] [id number]
[~2018-06-10 06:52] MED LIST: ACETAMINOPHEN500 M1 PO; BAYER CHEWABLE81 MG PO; BUMEX2 MG PO; CALTRATE 600 M600 M1 PO; COZAAR50 MG PO; DULCOLAX10 MG/SUPP RC; ESTRACE1 MG PO; FUROSEMIDE10 MG/M1 IV; GLIMEPIRIDE4 MG PO; HUMULIN R100 U/ML SC; HYDROCODON-ACE1 EAC7 PO; ISOSORBIDE MONO30 M1 PO; K-DUR20 MEQ; LASIX80 MG; LEVOTHYROXINE150 MCG PO; LOPRESSOR25 MG PO; MAG-OX 400 MG400 MG PO; METOLAZONE5 MG PO; METOPROLOL TART50 MG PO; MIRALAX17 GM PO; ONDANSETRON4 MG/2 M3 IV; PROTONIX40 MG PO; ROBITUSSIN DM 110 ML PO; ROCEPHIN 1 GM/D51 G1 IV
[2018-06-10 07:12] LABS: HEMATOCRIT 35.8 % (36.0-48.0); MCH 29.6 pg (26.0-34.0); MCHC 30.7 g/dL (31.0-37.0); MCV 96.2 fL (80.0-100.0); MEAN PLATELET VOLUME 8.9 fL (7.4-10.4); RBC 3.72 10x6/uL (4.00-5.40); WBC 9.6 10x3/uL (4.8-10.8)
[2018-06-10 07:21] LABS: ANION GAP 13.7 mmol/L (8-16); CARBON DIOXIDE 29.5 mmol/L (21.0-32.0); CREATININE - SERUM 3.4 mg/dL (0.6-1.3); POTASSIUM - SERUM 4.2 mmol/L (3.5-5.1)
[2018-06-10 09:21] VITALS: BP 136/52; BMI 47.3
[2018-06-10] MEDS ORDERED: CELEXA10 MG PO (09:52)
[2018-06-10] MEDS ORDERED: RENVELA800 MG PO (09:53)
[2018-06-10] MEDS ORDERED: BASAGLAR K100 UNIT/1 (09:54)
[2018-06-10 15:35] VITALS: BP 128/34
[2018-06-10 15:58] VITALS: BP 128/34
[2018-06-10 19:51] VITALS: BP 141/78
[2018-06-10 20:00] VITALS: BP 111/55
[2018-06-11] VITALS: BP 122/45
[2018-06-11 04:36] VITALS: BP 114/43; Ht 154.9 cm; Wt 70.9 kg
[2018-06-11 05:47] LABS: BASOPHILS 0.4 % (0-2); EOSINOPHILS 2.9 % (0-7); HEMATOCRIT 34.4 % (36.0-48.0); HEMOGLOBIN 10.4 g/dL (12-16); IMMATURE GRANULOCYTES 0.3 % (0-5); LYMPHOCYTES 7.5 % (15-50); MCH 28.9 pg (26.0-34.0); MCHC 30.2 g/dL (31.0-37.0); MCV 95.6 fL (80.0-100.0); MEAN PLATELET VOLUME 9.6 fL (7.4-10.4); MONOCYTES 2.8 % (2-11); NEUTROPHILS 86.1 % (40-80); PLATELET COUNT 226 10x3/uL (130-400); RDW 17.9 % (11.5-14.5); WBC 10.9 10x3/uL (4.8-10.8)
[2018-06-11 06:03] LABS: ALBUMIN 2.6 g/dL (3.4-5.0); ANION GAP 16.2 mmol/L (8-16); BILIRUBIN - TOTAL 0.53 mg/dL (0.2-1.3); CALCIUM 8.7 mg/dL (8.5-10.1); CARBON DIOXIDE 24.6 mmol/L (21.0-32.0); CREATININE - SERUM 4.2 mg/dL (0.6-1.3); MAGNESIUM - SERUM 2.1 mg/dL (1.8-2.4); PHOSPHOROUS 5.3 mg/dL (2.5-4.9); POTASSIUM - SERUM 4.8 mmol/L (3.5-5.1); PROTEIN - SERUM 6.9 g/dL (6.4-8.2)
[2018-06-11 06:04] VITALS: BP 149/49
[2018-06-11 08:00] VITALS: BP 145/54
[2018-06-11 16:02] VITALS: BP 148/58
[2018-06-11 20:12] VITALS: BP 142/38
[2018-06-12 00:20] VITALS: BP 143/39
[2018-06-12 04:49] VITALS: BP 149/43
== END 2018-06-12 08:05 | disposition home or self-care (01) ==
LOC: D.OPS 06:52 → D.M2 14:39 → D.OPS 06-12 08:05
PROVIDERS: Anesthesiology; Internal Medicine Nephrology
DX: E11.22 Type 2 diabetes mellitus with diabetic chronic kidney disease (principal); I13.2 Hypertensive heart and chronic kidney disease with heart failure and with stage 5 chronic kidney disease, or end stage renal disease; I50.9 Heart failure, unspecified; N18.6 End stage renal disease; E11.65 Type 2 diabetes mellitus with hyperglycemia; E07.9 Disorder of thyroid, unspecified; M06.9 Rheumatoid arthritis, unspecified; D64.9 Anemia, unspecified; Z83.3 Family history of diabetes mellitus; Z82.49 Family history of ischemic heart disease and other diseases of the circulatory system; Z88.1 Allergy status to other antibiotic agents; Z88.2 Allergy status to sulfonamides; Z79.890 Hormone replacement therapy; Z79.4 Long term (current) use of insulin; Z79.82 Long term (current) use of aspirin; Z79.891 Long term (current) use of opiate analgesic; Z79.899 Other long term (current) drug therapy

== ENCOUNTER 2018-07-10 11:51 | Inpatient (IN) | payer MEDICARE ==
[~2018-07-10] VITALS: Ht 154.9 cm; Wt 100.2 kg
--- NOTE | ~2018-07-10 | MORECARE ---
CASE MANAGEMENT DISCHARGE SUMMARY PATIENT: GLEN CONNER UNIT: [id number] ADM DATE: 07/10/18 AGE: 72 : 45 SEX: F ROOM/BED: D.6886 AUTHOR: ALECIA,DOC PHYSICIAN: REFERRING PHYSICIAN: VIPIN BLEVINS MD DATE OF SERVICE: 07/15/18 Discharge Plan Patient Name: GLEN CONNER Facility: [facility]:[place] : 1945 Planned Disposition: Snf Facility Anticipated Discharge Date: 07/15/18 Discharge Date: Expected LOS: 5 Initial Reviewer: [email or web address] Initial Review Date: 07/15/2018 Generated: 07/15/18 11:53 am Comments DCP- Discharge Planning Updated by [email or web address]: Sean Pete on 07/15/18 9:[address] Patient Name: GLEN CONNER Admission Status: Elective Accout number: [id number] Admission Date: 07-10-2018 : 1945 Admission Diagnosis:SEPSIS, UNSPECIFIED ORGANISM Attending: VIPIN BLEVINS Current LOS: 5 Anticipated DC Date: 07-15-2018 Planned Disposition: Snf Facility Primary Insurance: MEDICARE A & B PLANNED EXTERNAL PROVIDER: [facility], MEDICARE REHAB BED Discharge Planning Comments: CM RECEIVED DISCHARGE ORDER, MET WITH PT AND SISTER, JASON GIBSON, IN ROOM TO DISCUSS DISCHARGE PLANNING AND NEEDS. GLEN CONNER provided verbal consent to discuss current and ongoing needs with/in the presence of: SISTER JASON. PT REPORTS LIVING AT [facility]. ALL MEDICAL EQUIPMENT PROVIDED BY FACILITY. PT HAS [facility]PAT[facility]IALYS[facility], [facility], [facility] VAN TRANSPORTATION. CM DISCUSSED AVAILABILITY OF HOME HEALTH, REHAB SERVICES AND MEDICAL EQUIPMENT. PT DENIES DISCHARGE NEEDS OTHER THAN NEEDING AMBULANCE FOR DISCHARGE HOME TO [facility]. IMPORTANT MESSAGE FROM MEDICARE PROVIDED AND EXPLAINED. CM CALLED [facility], , SPOKE TO SOPHIA WHO REPORTS THEY WILL ACCEPT PT BACK TODAY, THEY WOULD NOT LIKE PT RETURNED LATE TODAY IF AT ALL POSSIBLE. CM FAXED DISCHARGE INFORMATION TO [facility] AT [phone]. NURSE REPORT TO BE CALLED TO [facility] AT [phone]. PT TO TRANSPORT VIA AMBULANCE. Case Management Associate: Sean Pete DCPIA - Discharge Planning Initial Assessment Updated by [id number]: Sean Peet on 07/15/18 10:40 am * Is the patient Alert and Oriented? Yes * How many steps to enter\exit or inside your home? NONE * PCP DR. CHEEMA * Pharmacy [facility] [place] * Preadmission Environment Snf Facility * Facility Name [facility] [place] [facility] * ADLs Partial Dependent * Partial ADLs (Assistance needed) Ambulation Bathing Dressing Medication Management Toileting Transfers * Equipment Other * Other Equipment ALL MEDICAL EQUIPMENT PROVIDED BY LONG-TERM FACILITY * List name and contact numbers for known caregivers / representatives who currently or will assist patient after discharge: JASON GIBSON, , * Verbal permission to speak to the caregivers and representatives has been obtained from the patient. Yes * Community resources currently utilized Other * Please name any agencies selected above. OUTPATIENT DIALYSIS, [facility], [facility] [address], [facility] * Additional services required to return to the preadmission environment? No * Can the patient safely return to the preadmission environment? Yes * Has this patient been hospitalized within the prior 30 days at any hospital? No Coverage Notice Reviewer: [id number] - Sean Pete Notice Issued Date-Time: 07/15/2018 9:40 Notice Type: IM Discharge Notice Notice Delivered To: Family Member Relationship to Patient: Sister Sofa Inspector Name: JASON GIBSON Delivery Method: HAND - Hand Delivered [place] Days: Prior Verbal Notification: Recipient Understood Notice: Yes Recipient Signature: Yes Med Rec Note Co-signed by Attending: Coverage Notice Comment: Last DP export: 07/15/18 9:46 Patient Name: GLEN CONNER Page [id number] at 1054 All edits/amendments must be made on the electronic document DICTATION DATE: 07/15/181052 CUSTOMER SUPPORT MANAGER: KRISTIE 07/15/18 105 RPT#: [id number] DC DATE: STATUS: ADM IN [facility] [address] [place] [address] END OF REPORT
--- NOTE | ~2018-07-10 | OP ---
PATIENT NAME: GLEN CONNER MEDICAL RECORD: [id number] :[birth year] LOCATION:D. D.2136 ADMISSION DATE:07/10/18 SURGEON: JOEY OCONNOR MD DATE OF OPERATION: 07/12/2018 REFERRING PHYSICIAN: Reginaldo Blevins MD PREOPERATIVE DIAGNOSIS: Staphylococcal septicemia with a Gram-positive bacteremia as yet unidentified and associated with tunneled dialysis catheter. POSTOPERATIVE DIAGNOSES: Staphylococcal septicemia with a Gram-positive bacteremia as yet unidentified and associated with tunneled dialysis catheter. OPERATION PERFORMED: Exchange of TDC under fluoroscopy under local MAC anesthesia per CONCRETE SPREADER. SURGEON: Joey Oconnor MD PREOPERATIVE NOTE: Ms. Glen Conner is a very debilitated 72-year-old white female with rheumatoid arthritis and end-stage renal disease. She has been admitted with a febrile illness and found to have blood cultures positive for Gram-positive cocci thought to most likely represents staph, but is still as yet unidentified. She is brought to the operating room at this time per Dr. Blevins's request to exchange her catheter. Under IV sedation and monitored per CONCRETE SPREADER, the patient was placed on the operating table in supine position and the operative field prepped and draped in a sterile manner. The catheter exit site and a tunnel was infiltrated with 1% lidocaine without epinephrine and blunt dissection was used to separate the cuff from the surrounding subcutaneous tissues. The cuff was minimally fixed and I believe probably infected, though there was no other drainage or signs of infection other than cuff being poorly fixed and kind of gooey. The catheter was backed out under fluoroscopy and contrast injected through the arterial port revealed no signs of fibrin sheathing. A guidewire was inserted and parked in the inferior vena cava. The existing catheter was removed and a new 19-cm HemoSplit catheter was inserted over the guidewire and positioned as deeply as this rather long subQ tunnel would permit. Both lumens were accessed and aspirated, free return of blood per each was confirmed. They were then flushed with saline and lastly a heparin locked, clamped and capped. The new catheter was sutured to the skin at the entry site with 2-0 Prolene. I used a single 2-0 Prolene simple suture to tighten the exit site as it had been stretched and torn somewhat during the initial blunt dissection. A sterile dressing with a chlorhexidine disc was applied and the patient returned to her room in stable condition. Blood loss was 10 cc, none replaced. Sponges, instruments, and needles were accounted for. No drain was used and no surgical specimen was submitted for histopathology. I did submit 2 different segments each 3 inches or less in length from the existing indwelling catheter. These 2 were sent individually for culture and sensitivity, one the tip and one the cuff. TRANSINT:[id number] Voice Confirmation ID: [id number] DOCUMENT ID: [id number] OPERATIVE REPORT [id number] GLEN CONNER JAMES MD at 1657 CC: REGINALDO BLEVINS [id number] DICTATION DATE: 07/12/18 1422 HEMP FIBER TAKER OFF: 07/12/182008 DIS IN 07/15/18 [facility] [address] [place] [address]
--- NOTE | ~2018-07-10 | MORECARE ---
CASE MANAGEMENT DISCHARGE SUMMARY PATIENT: GLEN CONNER UNIT: [id number] ADM DATE: 07/10/18 AGE: 72 : 45 SEX: F ROOM/BED: D.3276 AUTHOR: ALECIA,DOC PHYSICIAN: REFERRING PHYSICIAN: VIPIN BLEVINS MD DATE OF SERVICE: 07/15/18 Discharge Plan Patient Name: GLEN CONNER Facility: [facility]:[place] : 1945 Planned Disposition: Snf Facility Anticipated Discharge Date: 07/15/18 Discharge Date: Expected LOS: 5 Initial Reviewer: [id number] Initial Review Date: 07/15/2018 Generated: 07/15/18 12:00 pm Comments DCP- Discharge Planning Updated by [email or web address]: Sean Pete on 07/15/18 9:[address] Patient Name: GLEN CONNER Admission Status: Elective Accout number: [id number] Admission Date: 07-10-2018 : 1945 Admission Diagnosis:SEPSIS, UNSPECIFIED ORGANISM Attending: VIPIN BLEVINS Current LOS: 5 Anticipated DC Date: 07-15-2018 Planned Disposition: Snf Facility Primary Insurance: MEDICARE A & B PLANNED EXTERNAL PROVIDER: [facility], MEDICARE REHAB BED Discharge Planning Comments: CM RECEIVED DISCHARGE ORDER, MET WITH PT AND SISTER, JASON GIBSON, IN ROOM TO DISCUSS DISCHARGE PLANNING AND NEEDS. GLEN CONNER provided verbal consent to discuss current and ongoing needs with/in the presence of: SISTER JASON. PT REPORTS LIVING AT [facility]. ALL MEDICAL EQUIPMENT PROVIDED BY FACILITY. PT HAS OUTPATIENT DIALYSIS, TTS, [facility], [address], [facility] VAN TRANSPORTATION. CM DISCUSSED AVAILABILITY OF HOME HEALTH, REHAB SERVICES AND MEDICAL EQUIPMENT. PT DENIES DISCHARGE NEEDS OTHER THAN NEEDING AMBULANCE FOR DISCHARGE HOME TO [facility]. IMPORTANT MESSAGE FROM MEDICARE PROVIDED AND EXPLAINED. CM CALLED [facility], , SPOKE TO SOPHIA WHO REPORTS THEY WILL ACCEPT PT BACK TODAY, THEY WOULD NOT LIKE PT RETURNED LATE TODAY IF AT ALL POSSIBLE. CM FAXED DISCHARGE INFORMATION TO [facility] AT [phone]. NURSE REPORT TO BE CALLED TO [facility] AT [phone]. PT TO TRANSPORT VIA AMBULANCE. Finger Lift Operator: Sean Pete DCPIA - Discharge Planning Initial Assessment Updated by [id number]: Sean Pete on 07/15/18 10:40 am * Is the patient Alert and Oriented? Yes * How many steps to enter\exit or inside your home? NONE * PCP DR. CHEEMA * Pharmacy [facility] [place] * Preadmission Environment Snf Facility * Facility Name [facility], [place] SHELTER CARE RESIDENT * ADLs Partial Dependent * Partial ADLs (Assistance needed) Ambulation Bathing Dressing Medication Management Toileting Transfers * Equipment Other * Other Equipment ALL MEDICAL EQUIPMENT PROVIDED BY RESIDENTIAL FACILITY * List name and contact numbers for known caregivers / representatives who currently or will assist patient after discharge: JASON GIBSON, , * Verbal permission to speak to the caregivers and representatives has been obtained from the patient. Yes * Community resources currently utilized Other * Please name any agencies selected above. OUTPATIENT DIALYSIS, TTS, [facility], [facility], [facility] TRANSP[facility]ATION * Additional services required to return to the preadmission environment? No * Can the patient safely return to the preadmission environment? Yes * Has this patient been hospitalized within the prior 30 days at any hospital? No Coverage Notice Reviewer: [id number] - Sean Pete Notice Issued Date-Time: 07/15/2018 9:40 Notice Type: IM Discharge Notice Notice Delivered To: Family Member Relationship to Patient: Sister Manager Of It Name: JASON GIBSON Delivery Method: HAND - Hand Delivered [place] Days: Prior Verbal Notification: Recipient Understood Notice: Yes Recipient Signature: Yes Med Rec Note Co-signed by Attending: Coverage Notice Comment: Last DP export: 07/15/18 9:53 Patient Name: GLEN CONNER Page [id number] at 1100 All edits/amendments must be made on the electronic document DICTATION DATE: 07/15/18 1100 CUSTOMS GUARD: KRISTIE 07/15/18 1100 RPT#: [id number] DC DATE: STATUS: ADM IN [facility] [address] [place] [address] END OF REPORT
--- NOTE | ~2018-07-10 | MORECARE ---
CASE MANAGEMENT DISCHARGE SUMMARY PATIENT: GLEN CONNER UNIT: [id number] ADM DATE: 07/10/18 AGE: 72 : 45 SEX: F ROOM/BED: D.2136 AUTHOR: JAM ALSTON PHYSICIAN: REFERRING PHYSICIAN: VIPIN BLEVINS MD DATE OF SERVICE: 07/15/18 Discharge Plan Patient Name: GLEN CONNER Facility: [facility] : 1945 Planned Disposition: Long Term Facility Anticipated Discharge Date: 07/15/18 Discharge Date: Expected LOS: 5 Initial Reviewer: [email or web address] Initial Review Date: 07/15/2018 Generated: 07/15/18 11:46 am DCPIA - Discharge Planning Initial Assessment Updated by [email or web address]: Sean Pete on 07/15/18 10:40 am * Is the patient Alert and Oriented? Yes * How many steps to enter\exit or inside your home? NONE * PCP DR. CHEEMA * Pharmacy [facility] * Preadmission Environment Long Term Facility * Facility Name [facility]RE[facility] CARE RESIDENT * ADLs Partial Dependent * Partial ADLs (Assistance needed) Ambulation Bathing Dressing Medication Management Toileting Transfers * Equipment Other * Other Equipment ALL MEDICAL EQUIPMENT PROVIDED BY SNF FACILITY * List name and contact numbers for known caregivers / representatives who currently or will assist patient after discharge: JASON GIBSON, SISTER, * Verbal permission to speak to the caregivers and representatives has been obtained from the patient. Yes * Community resources currently utilized Other * Please name any agencies selected above. OUTPATIENT DIALYSIS, TTS, [facility], [facility], [facility] TRANSPORTATION * Additional services required to return to the preadmission environment? No * Can the patient safely return to the preadmission environment? Yes * Has this patient been hospitalized within the prior 30 days at any hospital? No Last DP export: 07/15/18 9:33 Patient Name: GLEN CONNER Page [id number] at 1046 All edits/amendments must be made on the electronic document DICTATION DATE: 07/15/18 1045 PERSONAL DEVELOPMENT COACH: DM 07/15/18 1045 RPT#: [id number] DC DATE: STATUS: ADM IN [facility] [address] [place] [address] END OF REPORT
--- NOTE | ~2018-07-10 | MORECARE ---
CASE MANAGEMENT DISCHARGE SUMMARY PATIENT: GLEN CONNER UNIT: [id number] ADM DATE: 07/10/18 AGE: 72 : 45 SEX: F ROOM/BED: D.2136 AUTHOR: JAM ALSTON PHYSICIAN: REFERRING PHYSICIAN: VIPIN BLEVINS MD DATE OF SERVICE: 07/15/18 Discharge Plan Patient Name: GLEN CONNER Facility: [facility]:[place] : 1945 Planned Disposition: Longterm Facility Anticipated Discharge Date: 07/15/18 Discharge Date: Expected LOS: 5 Initial Reviewer: [id number] Initial Review Date: 07/15/2018 Generated: 07/15/18 11:33 am External Providers External Provider: [facility] Next Contact Date: 07/15/2018 Service Request Date: Service Type: Resolution: Reviewer: Comments: Patient Name: GLEN CONNER Page [id number] at 1033 All edits/amendments must be made on the electronic document DICTATION DATE: 07/15/18 1033 SNUFF CONTAINER INSPECTOR: KRISTIE 07/15/18 1033 RPT#: [id number] UT DATE: STATUS: ADM IN [facility] [address] [place] [address] END OF REPORT
[~2018-07-10 11:51] MED LIST changes: +BASAGLAR K100 UNIT/1; +CELEXA10 MG PO; +RENVELA800 MG PO
[2018-07-10 15:32] VITALS: BP 144/35; BMI 41.5
[2018-07-10 16:33] LABS: HEMATOCRIT 35.6 % (36.0-48.0); HEMOGLOBIN 10.8 g/dL (12-16); MCH 30.9 pg (26.0-34.0); MCHC 30.3 g/dL (31.0-37.0); MCV 101.7 fL (80.0-100.0); MEAN PLATELET VOLUME 9.8 fL (7.4-10.4); PLATELET COUNT 201 10x3/uL (130-400); RDW 17.6 % (11.5-14.5); WBC 27.6 10x3/uL (4.8-10.8)
[2018-07-10 16:47] VITALS: BP 144/35
[2018-07-10 16:47] LABS: ANION GAP 19.5 mmol/L (8-16); CALCIUM 8.5 mg/dL (8.5-10.1); CARBON DIOXIDE 23.6 mmol/L (21.0-32.0); CREATININE - SERUM 4.6 mg/dL (0.6-1.3); POTASSIUM - SERUM 4.1 mmol/L (3.5-5.1)
[2018-07-10 16:56] LABS: LYMPHOCYTES 1 % (15-50); MONOCYTES 2 % (2-11); NEUTROPHILS 92 % (40-80); PLATELET ESTIMATE NORMAL; POIKILOCYTOSIS OCC; POLYCHROMASIA OCC
[2018-07-10 20:00] VITALS: BP 90/50
[2018-07-11 04:00] VITALS: BP 110/47
[2018-07-11 08:05] LABS: BASOPHILS 0.2 % (0-2); EOSINOPHILS 0.2 % (0-7); HEMATOCRIT 29.9 % (36.0-48.0); IMMATURE GRANULOCYTES 0.4 % (0-5); LYMPHOCYTES 4.6 % (15-50); MCH 30.1 pg (26.0-34.0); MCHC 30.1 g/dL (31.0-37.0); MEAN PLATELET VOLUME 9.8 fL (7.4-10.4); MONOCYTES 4.8 % (2-11); NEUTROPHILS 89.8 % (40-80); PLATELET COUNT 167 10x3/uL (130-400); RBC 2.99 10x6/uL (4.00-5.40); RDW 17.2 % (11.5-14.5)
[2018-07-11 08:28] LABS: WBC 17.1 10x3/uL (4.8-10.8)
[2018-07-11 08:32] LABS: ANION GAP 11.8 mmol/L (8-16); CALCIUM 8.9 mg/dL (8.5-10.1); CARBON DIOXIDE 28.5 mmol/L (21.0-32.0); CREATININE - SERUM 5.4 mg/dL (0.6-1.3); POTASSIUM - SERUM 4.3 mmol/L (3.5-5.1); VANCOMYCIN - RANDOM 17.8 ug/mL (10.0-20.0)
[2018-07-11 10:56] VITALS: BP 103/34
[2018-07-11 13:39] VITALS: BMI 41.4
[2018-07-11 14:38] VITALS: BP 93/20
[2018-07-11 20:00] VITALS: BP 132/39
[2018-07-12] VITALS (7 sets, daily range): BP systolic 114–136; BP diastolic 22–76; Ht 154.9 cm; Wt 100.2 kg
[2018-07-12 06:04] LABS: BASOPHILS 0.2 % (0-2); EOSINOPHILS 1.8 % (0-7); HEMATOCRIT 31.3 % (36.0-48.0); HEMOGLOBIN 9.4 g/dL (12-16); IMMATURE GRANULOCYTES 0.3 % (0-5); LYMPHOCYTES 3.6 % (15-50); MCH 29.7 pg (26.0-34.0); MCV 99.1 fL (80.0-100.0); MEAN PLATELET VOLUME 10.6 fL (7.4-10.4); MONOCYTES 13.1 % (2-11); RBC 3.16 10x6/uL (4.00-5.40); RDW 16.8 % (11.5-14.5)
[2018-07-12 06:32] LABS: PLATELET COUNT 130 10x3/uL (130-400); WBC 12.7 10x3/uL (4.8-10.8)
[2018-07-12 06:41] LABS: ANION GAP 12.7 mmol/L (8-16); CALCIUM 8.5 mg/dL (8.5-10.1); CARBON DIOXIDE 28.1 mmol/L (21.0-32.0); CREATININE - SERUM 4.3 mg/dL (0.6-1.3); POTASSIUM - SERUM 3.8 mmol/L (3.5-5.1)
[2018-07-12 10:25] LABS: INR 1.07 (0.85-1.17); PROTIME 13.6 SECONDS (11.6-15.0)
[2018-07-13 01:16] VITALS: BP 107/36
[2018-07-13 05:32] LABS: BASOPHILS 0.4 % (0-2); EOSINOPHILS 2.6 % (0-7); HEMATOCRIT 30.8 % (36.0-48.0); HEMOGLOBIN 9.6 g/dL (12-16); IMMATURE GRANULOCYTES 0.4 % (0-5); LYMPHOCYTES 8.9 % (15-50); MCH 30.3 pg (26.0-34.0); MCHC 31.2 g/dL (31.0-37.0); MCV 97.2 fL (80.0-100.0); MEAN PLATELET VOLUME 9.8 fL (7.4-10.4); MONOCYTES 8.4 % (2-11); NEUTROPHILS 79.3 % (40-80); PLATELET COUNT 126 10x3/uL (130-400); RBC 3.17 10x6/uL (4.00-5.40); RDW 16.2 % (11.5-14.5); WBC 11.4 10x3/uL (4.8-10.8)
[2018-07-13 05:50] VITALS: BP 145/57
[2018-07-13 06:01] LABS: ANION GAP 16.6 mmol/L (8-16); CALCIUM 8.7 mg/dL (8.5-10.1); CARBON DIOXIDE 22.8 mmol/L (21.0-32.0); CREATININE - SERUM 5.3 mg/dL (0.6-1.3); VANCOMYCIN - RANDOM 22.2 ug/mL (10.0-20.0)
[2018-07-13 06:08] LABS: POTASSIUM - SERUM 4.4 mmol/L (3.5-5.1)
[2018-07-13 09:17] VITALS: BP 110/82
[2018-07-13 15:13] VITALS: BP 103/24
[2018-07-13 21:07] VITALS: BP 120/41
[2018-07-14 00:42] VITALS: BP 124/45
[2018-07-14 05:17] VITALS: BP 140/45
[2018-07-14 06:08] LABS: BASOPHILS 0.1 % (0-2); EOSINOPHILS 1.9 % (0-7); HEMATOCRIT 32.8 % (36.0-48.0); HEMOGLOBIN 10.4 g/dL (12-16); IMMATURE GRANULOCYTES 0.5 % (0-5); LYMPHOCYTES 5.7 % (15-50); MCH 30.1 pg (26.0-34.0); MCHC 31.7 g/dL (31.0-37.0); MEAN PLATELET VOLUME 10.2 fL (7.4-10.4); MONOCYTES 7.1 % (2-11); NEUTROPHILS 84.7 % (40-80); PLATELET COUNT 135 10x3/uL (130-400); RBC 3.45 10x6/uL (4.00-5.40); WBC 13.4 10x3/uL (4.8-10.8)
[2018-07-14 06:19] LABS: ANION GAP 15.1 mmol/L (8-16); CALCIUM 8.2 mg/dL (8.5-10.1); CARBON DIOXIDE 27.9 mmol/L (21.0-32.0); CREATININE - SERUM 4.2 mg/dL (0.6-1.3); VANCOMYCIN - RANDOM 16.2 ug/mL (10.0-20.0)
[2018-07-14 06:22] LABS: MCV 95.1 fL (80.0-100.0)
[2018-07-14 08:26] VITALS: BP 137/47
[2018-07-14 10:59] VITALS: BP 139/46
[2018-07-14 18:43] VITALS: BP 106/65
[2018-07-14 21:03] VITALS: BP 106/44
[2018-07-15 01:12] VITALS: BP 109/45
[2018-07-15 04:38] VITALS: BP 113/49
[2018-07-15 06:36] LABS: BASOPHILS 0.2 % (0-2); EOSINOPHILS 2.6 % (0-7); HEMATOCRIT 31.6 % (36.0-48.0); HEMOGLOBIN 10.2 g/dL (12-16); IMMATURE GRANULOCYTES 1.1 % (0-5); MCH 30.1 pg (26.0-34.0); MCHC 32.3 g/dL (31.0-37.0); MCV 93.2 fL (80.0-100.0); MONOCYTES 9.9 % (2-11); NEUTROPHILS 77.2 % (40-80); PLATELET COUNT 151 10x3/uL (130-400); RBC 3.39 10x6/uL (4.00-5.40); RDW 15.6 % (11.5-14.5); WBC 14.5 10x3/uL (4.8-10.8)
[2018-07-15 07:03] LABS: ANION GAP 15.1 mmol/L (8-16); CALCIUM 8.7 mg/dL (8.5-10.1); POTASSIUM - SERUM 4.1 mmol/L (3.5-5.1); VANCOMYCIN - RANDOM 15.6 ug/mL (10.0-20.0)
[2018-07-15 07:04] LABS: CREATININE - SERUM 5.3 mg/dL (0.6-1.3)
[2018-07-15 08:21] VITALS: BP 107/40
[2018-07-15 11:03] VITALS: BP 119/39
== END 2018-07-15 12:54 | DRG 252 ==
LOC: D.M2 11:51
PROVIDERS: Internal Medicine Nephrology; Surgery
PROC: 05PY03Z Removal of Infusion Device from Upper Vein, Open Approach (ICD-10-PCS; 2018-07-12)
PROC: 0JH63XZ Insertion of Tunneled Vascular Access Device into Chest Subcutaneous Tissue and Fascia, Percutaneous Approach (ICD-10-PCS; 2018-07-12)
PROC: 05HM33Z Insertion of Infusion Device into Right Internal Jugular Vein, Percutaneous Approach (ICD-10-PCS; 2018-07-12)
PROC: B5131ZA Fluoroscopy of Right Jugular Veins using Low Osmolar Contrast, Guidance (ICD-10-PCS; 2018-07-12)
PROC: 0JPT3XZ Removal of Tunneled Vascular Access Device from Trunk Subcutaneous Tissue and Fascia, Percutaneous Approach (ICD-10-PCS; principal; 2018-07-12 16:30)
DX: T82.7XXA Infection and inflammatory reaction due to other cardiac and vascular devices, implants and grafts, initial encounter (principal); N18.6 End stage renal disease; A41.2 Sepsis due to unspecified staphylococcus; N39.0 Urinary tract infection, site not specified; I13.2 Hypertensive heart and chronic kidney disease with heart failure and with stage 5 chronic kidney disease, or end stage renal disease; Y83.8 Other surgical procedures as the cause of abnormal reaction of the patient, or of later complication, without mention of misadventure at the time of the procedure; E11.65 Type 2 diabetes mellitus with hyperglycemia; E11.22 Type 2 diabetes mellitus with diabetic chronic kidney disease; I50.9 Heart failure, unspecified; E66.01 Morbid (severe) obesity due to excess calories; Z68.29 Body mass index [BMI] 29.0-29.9, adult; D64.9 Anemia, unspecified; M06.9 Rheumatoid arthritis, unspecified

== ENCOUNTER 2018-07-20 15:06 | Inpatient (IN) | payer MEDICARE ==
[~2018-07-20] VITALS: Ht 157.5 cm; Wt 87.0 kg
--- NOTE | ~2018-07-20 | MORECARE ---
CASE MANAGEMENT DISCHARGE SUMMARY PATIENT: GLEN CONNER UNIT: [id number] ADM DATE: 07/20/18 AGE: 72 : 45 SEX: F ROOM/BED: D.5012 AUTHOR: JAM ALSTON PHYSICIAN: REFERRING PHYSICIAN: LUH NORWOOD MD DATE OF SERVICE: 07/29/18 Discharge Plan Patient Name: GLEN CONNER Facility: [facility] : 1945 Planned Disposition: Nursing Facility [facility] Cert Anticipated Discharge Date: Discharge Date: Expected LOS: Initial Reviewer: [id number] Initial Review Date: 07/28/2018 Generated: 07/29/18 12:40 pm Comments DCP- Discharge Planning Updated by [id number]: Sean Pete on 07/29/18 10:[address] Patient Name: GLEN CONNER Encounter No: [id number] : 1945 Primary Insurance: MEDICARE A & B Anticipated DC Date: Planned Disposition: Nursing Facility [facility] Cert External Planned Provider: [facility], LONG TERM CARE MEDICAID BED DCP follow-up note: RECEIVED CALL FROM SOPHIA AT [facility], , WHO ADVISED THEY PLAN TO TAKE PT BACK FOR IMPORT/EXPORT SPECIALIST CARE AT DISCHARGE BUT HAD HEARD PT IS ON IV VITAMINS; [facility] IS NOT ABLE TO PROVIDE "IV VITAMINS". CM PROVIDED HOSPITAL UPDATE, FAXED UPDATE TO [facility] AT [phone]. NURSE REPORT TO BE CALLED TO [facility] AT [phone]. FAX DISCHARGE INFORMATION TO [facility] AT [phone]. [facility] TO ARRANGE VAN TRANSPORTATION. LILIYA Sheldon DCP- Discharge Planning Updated by [email or web address]: Sean Pete on 07/28/18 3:[address] Patient Name: GLEN CONNER Admission Status: Urgent Accout number: [id number] Admission Date: 07-20-2018 : 1945 Admission Diagnosis:INFECT/INFLM REACT D/T OTH CARDI/VASC DEV/IMPLNT/GRFT, Attending: Luh Norwood Current LOS: 8 Anticipated DC Date: Planned Disposition: Nursing Facility [facility] Cert Primary Insurance: MEDICARE A & B PLANNED EXTERNAL PROVIDER: [facility], IMPORT/EXPORT SPECIALIST CARE MEDICAID BED Discharge Planning Comments: CM MET WITH PT IN ROOM TO DISCUSS DISCHARGE PLANNING AND NEEDS. PT REPORTS LIVING AT [facility]. PT'S MEDICAL EQUIPMENT IS PROVIDED BY THE FACILITY. PT IS UP TO WHEELCHAIR FOR TRANSPORT TO AND FROM [facility] AT [facility], [facility] AT [address] VIA [facility]. PT DENIES DISCHARGE NEEDS, REPORTS THE [facility] WILL PICK HER UP FOR DISCHARGE HOME. IMPORTANT MESSAGE FROM MEDICARE PROVIDED AND EXPLAINED. [employer] Supervisor: Sean Pete DCPIA - Discharge Planning Initial Assessment Updated by [email or web address]: Sean Pete on 07/28/18 4:44 pm * Is the patient Alert and Oriented? Yes * How many steps to enter\\exit or inside your home? NONE * PCP DR. CHEEMA * Pharmacy [facility] * Preadmission Environment [facility] * Facility Name [facility], * ADLs Partial Dependent * Partial ADLs (Assistance needed) Ambulation Bathing Dressing Medication Management Toileting Transfers * Equipment Other * Other Equipment ALL MEDICAL EQUIPMENT PROVIDED BY FACILITY * List name and contact numbers for known caregivers / representatives who currently or will assist patient after discharge: JASON GIBSON, SISTER, * Verbal permission to speak to the caregivers and representatives has been obtained from the patient. N/A * Community resources currently utilized Other * Please name any agencies selected above. OUTPATIENT DIALYSIS, TTS, [facility], [address], [facility] * Additional services required to return to the preadmission environment? No * Can the patient safely return to the preadmission environment? Yes * Has this patient been hospitalized within the prior 30 days at any hospital? Yes Coverage Notice Reviewer: [id number] - Sean Pete Notice Issued Date-Time: 07/28/2018 16:30 Notice Type: IM Discharge Notice Notice Delivered To: Patient Relationship to Patient: Collator Operator Name: Delivery Method: HAND - Hand Delivered [place] Days: Prior Verbal Notification: Recipient Understood Notice: Yes Recipient Signature: Yes Med Rec Note Co-signed by Attending: Coverage Notice Comment: Last DP export: 07/29/18 10:19 a Patient Name: DALILA GLEN Page 70782 at 1140 All edits/amendments must be made on the electronic document DICTATION DATE: 07/29/18 1140 LENS SILVERER: KRISTIE 07/29/18 1140 RPT#: [id number] DC DATE: STATUS: ADM IN [facility] [address] [place] [address] END OF REPORT
--- NOTE | ~2018-07-20 | MORECARE ---
CASE MANAGEMENT DISCHARGE SUMMARY PATIENT: GLEN CONNER UNIT: [id number] ADM DATE: 07/20/18 AGE: 72 : 45 SEX: F ROOM/BED: D.1963 AUTHOR: JAM ALSTON PHYSICIAN: REFERRING PHYSICIAN: LUH NORWOOD MD DATE OF SERVICE: 08/03/18 Discharge Plan Patient Name: GLEN CONNER Facility: [facility]:[place] : 1945 Planned Disposition: Nursing Facility [facility] Cert Anticipated Discharge Date: 08/03/18 Discharge Date: Expected LOS: 14 Initial Reviewer: [id number] Initial Review Date: 07/28/2018 Generated: 08/03/18 9:56 am Comments DCP- Discharge Planning Updated by [id number]: Sean Pete on 07/29/18 10:[address] Patient Name: GLEN CONNER Encounter No: [id number] : 1945 Primary Insurance: MEDICARE A & B Anticipated DC Date: Planned Disposition: Nursing Facility [facility] Cert External Planned Provider: [facility], LONG TERM CARE MEDICAID BED DCP follow-up note: RECEIVED CALL FROM SOPHIA AT [facility], , WHO ADVISED THEY PLAN TO TAKE PT BACK FOR INTERMEDIATE CARE AT DISCHARGE BUT HAD HEARD PT IS ON IV VITAMINS; [facility] IS NOT ABLE TO PROVIDE "IV VITAMINS". CM PROVIDED HOSPITAL UPDATE, FAXED UPDATE TO [facility] AT [phone]. NURSE REPORT TO BE CALLED TO [facility] AT [phone]. FAX DISCHARGE INFORMATION TO [facility] AT [phone]. [facility] TO ARRANGE VAN TRANSPORTATION. LILIYA Sheldon DCP- Discharge Planning Updated by [email or web address]: Sean Pete on 07/28/18 3:[address] Patient Name: GLEN CONNER Admission Status: Urgent Accout number: [id number] Admission Date: 07-20-2018 : 1945 Admission Diagnosis:INFECT/INFLM REACT D/T OTH CARDI/VASC DEV/IMPLNT/GRFT, Attending: Luh Norwood Current LOS: 8 Anticipated DC Date: Planned Disposition: Nursing Facility [facility] Cert Primary Insurance: MEDICARE A & B PLANNED EXTERNAL PROVIDER: [facility], GENETICS TEACHER CARE MEDICAID BED Discharge Planning Comments: CM MET WITH PT IN ROOM TO DISCUSS DISCHARGE PLANNING AND NEEDS. PT REPORTS LIVING AT [facility]. PT'S MEDICAL EQUIPMENT IS PROVIDED BY THE FACILITY. PT IS UP TO WHEELCHAIR FOR TRANSPORT TO AND FROM [facility], [facility] AT [address] V[facility]. PT DENIES DISCHARGE NEEDS, REPORTS THE [facility] WILL PICK HER UP FOR DISCHARGE HOME. IMPORTANT MESSAGE FROM MEDICARE PROVIDED AND EXPLAINED. Net Trainer: Sean Pete DCPIA - Discharge Planning Initial Assessment Updated by [email or web address]: Sean Pete on 07/28/18 4:44 pm * Is the patient Alert and Oriented? Yes * How many steps to enter\\exit or inside your home? NONE * PCP DR. CHEEMA * Pharmacy [facility] * [facility] * Facility Name [facility], * ADLs Partial Dependent * Partial ADLs (Assistance needed) Ambulation Bathing Dressing Medication Management Toileting Transfers * Equipment Other * Other Equipment ALL MEDICAL EQUIPMENT PROVIDED BY FACILITY * List name and contact numbers for known caregivers / representatives who currently or will assist patient after discharge: JASON GIBSON, SISTER, * Verbal permission to speak to the caregivers and representatives has been obtained from the patient. N/A * Community resources currently utilized Other * Please name any agencies selected above. OUTPATIENT DIALYSIS, TTS, [facility], 1100, [facility] * Additional services required to return to the preadmission environment? No * Can the patient safely return to the preadmission environment? Yes * Has this patient been hospitalized within the prior 30 days at any hospital? Yes Coverage Notice Reviewer: [id number] - Sean Pete Notice Issued Date-Time: 07/28/2018 16:30 Notice Type: IM Discharge Notice Notice Delivered To: Patient Relationship to Patient: Utilities Service Investigator Name: Delivery Method: HAND - Hand Delivered [place] Days: Prior Verbal Notification: Recipient Understood Notice: Yes Recipient Signature: Yes Med Rec Note Co-signed by Attending: Coverage Notice Comment: Last DP export: 07/29/18 10:40 a Patient Name: AL CONNERGY Page 36238 at 0856 All edits/amendments must be made on the electronic document DICTATION DATE: 08/03/18854 CLINICAL LABORATORY AIDE: KRISTIE 08/03/18854 RPT#: [id number] DC DATE: STATUS: ADM IN [facility] [address] [place] [address] END OF REPORT
--- NOTE | ~2018-07-20 | MORECARE ---
CASE MANAGEMENT DISCHARGE SUMMARY PATIENT: GLEN CONNER UNIT: [id number] ADM DATE: 07/20/18 AGE: 72 : 45 SEX: F ROOM/BED: D.1019 AUTHOR: JAM ALSTON PHYSICIAN: REFERRING PHYSICIAN: LUH NORWOOD MD DATE OF SERVICE: 08/03/18 Discharge Plan Patient Name: GLEN CONNER Facility: [facility]:[place] : 1945 Planned Disposition: Nursing Facility [facility] Cert Anticipated Discharge Date: 08/03/18 Discharge Date: Expected LOS: 14 Initial Reviewer: [id number] Initial Review Date: 07/28/2018 Generated: 08/03/18 10:21 am Comments DCP- Discharge Planning Updated by [id number]: Sean Pete on 07/29/18 10:[address] Patient Name: GLEN CONNER Encounter No: [id number] : 1945 Primary Insurance: MEDICARE A & B Anticipated DC Date: Planned Disposition: Nursing Facility [facility] Cert External Planned Provider: [facility], LONG TERM CARE MEDICAID BED DCP follow-up note: RECEIVED CALL FROM SOPHIA AT [facility], , WHO ADVISED THEY PLAN TO TAKE PT BACK FOR [facility] CARE AT DISCHARGE BUT HAD HEARD PT IS ON IV VITAMINS; [facility] IS NOT ABLE TO PROVIDE "IV VITAMINS". CM PROVIDED HOSPITAL UPDATE, FAXED UPDATE TO [facility] AT [phone]. NURSE REPORT TO BE CALLED TO [facility] AT [phone]. FAX DISCHARGE INFORMATION TO [facility] AT [phone]. [facility] TO ARRANGE VAN TRANSPORTATION. LILIYA Sheldon DCP- Discharge Planning Updated by [id number]: Sean Pete on 07/28/18 3:[address] Patient Name: GLEN CONNER Admission Status: Urgent Accout number: [id number] Admission Date: 07-20-2018 : 1945 Admission Diagnosis:INFECT/INFLM REACT D/T OTH CARDI/VASC DEV/IMPLNT/GRFT, Attending: Luh Norwood Current LOS: 8 Anticipated DC Date: Planned Disposition: Nursing Facility [facility] Cert Primary Insurance: MEDICARE A & B PLANNED EXTERNAL PROVIDER: [facility], [facility] CARE MEDICAID BED Discharge Planning Comments: CM MET WITH PT IN ROOM TO DISCUSS DISCHARGE PLANNING AND NEEDS. PT REPORTS LIVING AT [facility]. PT'S MEDICAL EQUIPMENT IS PROVIDED BY THE FACILITY. PT IS UP TO WHEELCHAIR FOR TRANSPORT TO AND FROM [facility] AT [address] VIA [facility]. PT DENIES DISCHARGE NEEDS, REPORTS THE [facility]IOR [facility] V[facility] WILL PICK HER UP FOR DISCHARGE HOME. IMPORTANT MESSAGE FROM MEDICARE PROVIDED AND EXPLAINED. Adjunct Physical Education Instructor: Sean Pete DCPIA - Discharge Planning Initial Assessment Updated by [id number]: Sean Pete on 07/28/18 4:44 pm * Is the patient Alert and Oriented? Yes * How many steps to enter\\exit or inside your home? NONE * PCP DR. CHEEMA * Pharmacy [facility] * Preadmission Environment [facility] * Facility Name [facility], * ADLs Partial Dependent * Partial ADLs (Assistance needed) Ambulation Bathing Dressing Medication Management Toileting Transfers * Equipment Other * Other Equipment ALL MEDICAL EQUIPMENT PROVIDED BY FACILITY * List name and contact numbers for known caregivers / representatives who currently or will assist patient after discharge: JASON GIBSON, SISTER, * Verbal permission to speak to the caregivers and representatives has been obtained from the patient. N/A * Community resources currently utilized Other * Please name any agencies selected above. OUTPATIENT DIALYSIS, TTS, [facility], [address], [facility] TRANSPORT * Additional services required to return to the preadmission environment? No * Can the patient safely return to the preadmission environment? Yes * Has this patient been hospitalized within the prior 30 days at any hospital? Yes Coverage Notice Reviewer: [id number] Clarence Pete Notice Issued Date-Time: 07/28/2018 16:30 Notice Type: IM Discharge Notice Notice Delivered To: Patient Relationship to Patient: Dumper Bailer Operator Name: Delivery Method: HAND - Hand Delivered [place] Days: Prior Verbal Notification: Recipient Understood Notice: Yes Recipient Signature: Yes Med Rec Note Co-signed by Attending: Coverage Notice Comment: Reviewer: [id number] Clarence Pete Notice Issued Date-Time: 08/03/2018 9:10 Notice Type: IM Discharge Notice Notice Delivered To: Patient Relationship to Patient: Dumper Bailer Operator Name: Delivery Method: HAND - Hand Delivered [place] Days: Prior Verbal Notification: Recipient Understood Notice: Yes Recipient Signature: Yes Med Rec Note Co-signed by Attending: Coverage Notice Comment: Last DP export: 08/03/18 7:56 Patient Name: GLEN CONNER Page 25604 at 0921 All edits/amendments must be made on the electronic document DICTATION DATE: 08/03/18919 PICTURE ENLARGER: KRISTIE 08/03/18919 RPT#: [id number] DC DATE: STATUS: ADM IN [facility] [address] [place] [address] END OF REPORT
--- NOTE | ~2018-07-20 | MORECARE ---
CASE MANAGEMENT DISCHARGE SUMMARY PATIENT: GLEN CONNER UNIT: [id number] ADM DATE: 07/20/18 AGE: 72 : 45 SEX: F ROOM/BED: D.7706 AUTHOR: ALECIADOC PHYSICIAN: REFERRING PHYSICIAN: LUH NORWOOD MD DATE OF SERVICE: 07/28/18 Discharge Plan Patient Name: GLEN CONNER Facility: [facility]:[place] : 1945 Planned Disposition: Nursing Facility [facility] Cert Anticipated Discharge Date: Discharge Date: Expected LOS: Initial Reviewer: [id number] Initial Review Date: 07/28/2018 Generated: 07/28/18 5:48 pm Comments DCP- Discharge Planning Updated by [email or web address]: Sean Pete on 07/28/18 3:[address] Patient Name: GLEN CONNER Admission Status: Urgent Accout number: [id number] Admission Date: 07-20-2018 : 1945 Admission Diagnosis:INFECT/INFLM REACT D/T OTH CARDI/VASC DEV/IMPLNT/GRFT, Attending: Luh Norwood Current LOS: 8 Anticipated DC Date: Planned Disposition: Nursing Facility [facility] Cert Primary Insurance: MEDICARE A & B PLANNED EXTERNAL PROVIDER: [facility], [place] [employer] [facility] MEDICAID BED Discharge Planning Comments: CM MET WITH PT IN ROOM TO DISCUSS DISCHARGE PLANNING AND NEEDS. PT REPORTS LIVING AT [facility]. PT'S MEDICAL EQUIPMENT IS PROVIDED BY THE FACILITY. PT IS UP TO WHEELCHAIR FOR TRANSPORT TO AND FROM [facility] AT [address]. PT DENIES DISCHARGE NEEDS, REPORTS THE [facility] WILL PICK HER UP FOR DISCHARGE HOME. IMPORTANT MESSAGE FROM MEDICARE PROVIDED AND EXPLAINED. Respiratory Practitioner: Sean Pete DCPIA - Discharge Planning Initial Assessment Updated by [email or web address]: Sean Pete on 07/28/18 4:44 pm * Is the patient Alert and Oriented? Yes * How many steps to enter\exit or inside your home? NONE * PCP DR. CHEEMA * Pharmacy [facility] * Preadmission Environment [employer] [facility] * Facility Name [facility], * ADLs Partial Dependent * Partial ADLs (Assistance needed) Ambulation Bathing Dressing Medication Management Toileting Transfers * Equipment Other * Other Equipment ALL MEDICAL EQUIPMENT PROVIDED BY FACILITY * List name and contact numbers for known caregivers / representatives who currently or will assist patient after discharge: JASON GIBSON, SISTER, * Verbal permission to speak to the caregivers and representatives has been obtained from the patient. N/A * Community resources currently utilized Other * Please name any agencies selected above. OUTPATIENT DIALYSIS, [facility], [facility], [facility], [facility] * Additional services required to return to the preadmission environment? No * Can the patient safely return to the preadmission environment? Yes * Has this patient been hospitalized within the prior 30 days at any hospital? Yes Patient Name: DALILAAL DUFFGY Page [id number] at 1648 All edits/amendments must be made on the electronic document DICTATION DATE: 07/28/181646 EMPLOYMENT LAW SPECIALIST: KRISTIE 07/28/181646 RPT#: [id number] DC DATE: STATUS: ADM IN [facility] [address] [place] [address] END OF REPORT
--- NOTE | ~2018-07-20 | MORECARE ---
CASE MANAGEMENT DISCHARGE SUMMARY PATIENT: GLEN CONNER UNIT: [id number] ADM DATE: 07/20/18 AGE: 72 : 45 SEX: F ROOM/BED: D.6074 AUTHOR: JAM ALSOTN PHYSICIAN: REFERRING PHYSICIAN: LUH NORWOOD MD DATE OF SERVICE: 08/03/18 Discharge Plan Patient Name: GLEN CONNER Facility: [facility]:[place] : 1945 Planned Disposition: Nursing Facility [facility] Cert Anticipated Discharge Date: 08/03/18 Discharge Date: Expected LOS: 14 Initial Reviewer: [email or web address] Initial Review Date: 07/28/2018 Generated: 08/03/18 10:27 am Comments DCP- Discharge Planning Updated by [email or web address]: Sean Pete on 08/03/18 8:[address] Patient Name: GLEN CONNER Encounter No: [id number] : 1945 Primary Insurance: MEDICARE A & B Anticipated DC Date: 08-03-2018 Planned Disposition: Nursing Facility [facility] Cert External Planned Provider: [facility], LONG TERM CARE MEDICAID BED DCP follow-up note: CM RECEIVED DISCHARGE ORDER, SPOKE TO PT IN ROOM WHO IS IN AGREEMENT WITH DISCHARGE BACK TO [facility] TODAY. IMPORTANT MESSAGE FROM MEDICARE PROVIDED AND EXCHANGED. CM RECEIVED CALL FROM LETICIA AT [facility], , WHO ADVISED THEY WILL ACCEPT BACK TODAY, [facility] WILL CALL PT'S SISTER AND NOTIFY FAMILY OF DISCHARGE. CM FAXED DISCHARGE INFORMATION TO [facility] AT [phone]. LETTUCE CUTTER NURSE NOTIFIED. NURSE REPORT TO BE CALLED TO [facility] AT [phone]. [facility] TO [facility] TRANSPORTATION. Sean Pete CASE MANAGEMENT DCP- Discharge Planning Updated by [email or web address]: Sean Pete on 07/29/18 10:[address] Patient Name: GLEN CONNER Encounter No: [id number] : 1945 Primary Insurance: MEDICARE A & B Anticipated DC Date: Planned Disposition: Nursing Facility [facility] Cert External Planned Provider: [facility], LONG TERM CARE MEDICAID BED DCP follow-up note: CM RECEIVED CALL FROM SOPHIA AT [facility], , WHO ADVISED THEY PLAN TO TAKE PT BACK FOR LONGTERM CARE AT DISCHARGE BUT HAD HEARD PT IS ON IV VITAMINS; [facility] IS NOT ABLE TO PROVIDE "IV VITAMINS". CM PROVIDED HOSPITAL UPDATE, FAXED UPDATE TO [facility] AT [phone]. NURSE REPORT TO BE CALLED TO [facility] AT [phone]. FAX DISCHARGE INFORMATION TO [facility] AT [phone]. [facility] TO [facility] VAN TRANSPORTATION. Sean Pete, CASE MANAGEMENT DCP- Discharge Planning Updated by [email or web address]: Sean Pete on 07/28/18 3:[address] Patient Name: GLEN CONNER Admission Status: Urgent Accout number: [id number] Admission Date: 07-20-2018 : 1945 Admission Diagnosis:INFECT/INFLM REACT D/T OTH CARDI/VASC DEV/IMPLNT/GRFT, Attending: Luh Norwood Current LOS: 8 Anticipated DC Date: Planned Disposition: Nursing Facility [facility] Primary Insurance: MEDICARE A & B PLANNED EXTERNAL PROVIDER: [facility], LONGTERM CARE MEDICAID BED Discharge Planning Comments: CM MET WITH PT IN ROOM TO DISCUSS DISCHARGE PLANNING AND NEEDS. PT REPORTS LIVING AT [facility] AND [facility]. PT'S MEDICAL EQUIPMENT IS PROVIDED BY THE FACILITY. PT IS UP TO WHEELCHAIR FOR TRANSPORT TO AND FROM [facility] AT [address]. PT DENIES DISCHARGE NEEDS, REPORTS THE [facility] WILL PICK HER UP FOR DISCHARGE HOME. IMPORTANT MESSAGE FROM MEDICARE PROVIDED AND EXPLAINED. Vaccinator: Sean Pete DCPIA - Discharge Planning Initial Assessment Updated by [email or web address]: Sean Pete on 07/28/18 4:44 pm * Is the patient Alert and Oriented? Yes * How many steps to enter\\exit or inside your home? NONE * PCP DR. CHEEMA * Pharmacy [facility] * Preadmission Environment Shel[facility]idential * Facility Name [facility], * ADLs Partial Dependent * Partial ADLs (Assistance needed) Ambulation Bathing Dressing Medication Management Toileting Transfers * Equipment Other * Other Equipment ALL MEDICAL EQUIPMENT PROVIDED BY FACILITY * List name and contact numbers for known caregivers / representatives who currently or will assist patient after discharge: JASON GIBSON, SISTER, * Verbal permission to speak to the caregivers and representatives has been obtained from the patient. N/A * Community resources currently utilized Other * Please name any agencies selected above. OUTPATIENT DIALYSIS, [facility], [facility], [facility], [facility] * Additional services required to return to the preadmission environment? No * Can the patient safely return to the preadmission environment? Yes * Has this patient been hospitalized within the prior 30 days at any hospital? Yes Coverage Notice Reviewer: [id number] Pete Notice Issued Date-Time: 07/28/2018 16:30 Notice Type: IM Discharge Notice Notice Delivered To: Patient Relationship to Patient: Batch Trucker Name: Delivery Method: HAND - Hand Delivered [place] Days: Prior Verbal Notification: Recipient Understood Notice: Yes Recipient Signature: Yes Med Rec Note Co-signed by Attending: Coverage Notice Comment: Reviewer: RUBEN Pete Notice Issued Date-Time: 08/03/2018 9:10 Notice Type: IM Discharge Notice Notice Delivered To: Patient Relationship to Patient: Batch Trucker Name: Delivery Method: HAND - Hand Delivered [place] Days: Prior Verbal Notification: Recipient Understood Notice: Yes Recipient Signature: Yes Med Rec Note Co-signed by Attending: Coverage Notice Comment: Last DP export: 08/03/18 8:21 Patient Name: GLEN CONNER Page 13155 at 0927 All edits/amendments must be made on the electronic document DICTATION DATE: 08/03/18926 MOLD REPAIRER: KRISTIE 08/03/18926 RPT#: [id number] DC DATE: STATUS: ADM IN [facility] [address] [place] [address] END OF REPORT
--- NOTE | ~2018-07-20 | OP ---
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 PROCEDURE: Excisional debridement of right arm with subtotal removal of looped PTFE graft. SURGEON: Errol Camarena MD JACKHAMMER SPLITTER OPERATOR: None. BLOOD LOSS: Minimal. ANESTHESIA: General. COMPLICATIONS: None. The patient has had an infected looped AV graft that was placed for hemodialysis access. It appears that this has been infected for a few weeks. There is purulence coming from the exit site at the distal end of the medial incision. There is also erythema around the graft tract indicating a pretty wide spread infection of the graft. I elected during this operation not to perform a graft patch angioplasty. The area around the arteriovenous anastomoses were heavily adherent and I was fearful that excessive dissection in these areas might cause a nerve injury or arterial injury. OPERATIVE COURSE: The patient was conveyed to the operating room electively on 07/26/2018. General anesthesia was induced by the anesthesia staff. The right extremity was abducted at 90 degrees to the patient's trunk. It was sterilely prepped and draped. Through the open area at the distal aspect of this medial arm incision, I inserted a pair of hemostats and I was able to open up the incision completely utilizing a pair of hemostats. I bluntly dissected down to some necrotic fat, which was excised in a piecemeal fashion. I dissected down to the arterial anastomosis. I took a TA 30 vascular stapler and stapled across the graft just distal to its anastomosis with the artery. I dissected down to the venous end of the graft and I stapled across the graft just next to the venous anastomosis. I transected the graft between these 2 staple lines. I then removed this portion of the graft in its entirety. I irrigated with hydrogen peroxide after culturing the wound. I believe that the small amount of PTFE that was left will likely be able to be taken care of by intravenous antibiotics. I checked for arterial signal distal to the arterial to graft anastomosis and there was good arterial signal. Also with the Doppler, I checked for arterial signal at the wrist, at the ulnar and radial arteries and indeed there was a good flow in these arteries as well. The main wound was closed with multiple interrupted horizontal mattress 2-0 nylons. A sterile dressing was applied. The patient was then extubated and conveyed to the post-anesthesia care unit OPERATIVE REPORT [id number] GLEN CONNER where she was in stable condition. TRANSINT:[id number] Voice Confirmation ID: [id number] DOCUMENT ID: [id number] ERROL CAMARENA MD at 1525 CC: [id number] DICTATION DATE: 07/30/18 1417 MEDICAL PROFESSIONALS: 07/30/18 1612 ADM IN [facility] [place] [id number] [place] [address]
--- NOTE | ~2018-07-20 | MORECARE ---
CASE MANAGEMENT DISCHARGE SUMMARY PATIENT: GLEN CONNER UNIT: [id number] ADM DATE: 07/20/18 AGE: 72 : 45 SEX: F ROOM/BED: D.1768 AUTHOR: ALECIADOC PHYSICIAN: REFERRING PHYSICIAN: LUH NORWOOD MD DATE OF SERVICE: 07/29/18 Discharge Plan Patient Name: GLEN CONNER Facility: [facility]:[place] : 1945 Planned Disposition: Nursing Facility [facility] Cert Anticipated Discharge Date: Discharge Date: Expected LOS: Initial Reviewer: [email or web address] Initial Review Date: 07/28/2018 Generated: 07/29/18 12:18 pm Comments DCP- Discharge Planning Updated by [email or web address]: Sean Pete on 07/28/18 3:[address] Patient Name: GLEN CONNER Admission Status: Urgent Accout number: [id number] Admission Date: 07-20-2018 : 1945 Admission Diagnosis:INFECT/INFLM REACT D/T OTH CARDI/VASC DEV/IMPLNT/GRFT, Attending: Luh Norwood Current LOS: 8 Anticipated DC Date: Planned Disposition: Nursing Facility [facility] Cert Primary Insurance: MEDICARE A & B PLANNED EXTERNAL PROVIDER: [facility], SNF CARE MEDICAID BED Discharge Planning Comments: CM MET WITH PT IN ROOM TO DISCUSS DISCHARGE PLANNING AND NEEDS. PT REPORTS LIVING AT [facility]. PT'S MEDICAL EQUIPMENT IS PROVIDED BY THE FACILITY. PT IS UP TO WHEELCHAIR FOR TRANSPORT TO AND FROM [facility] AT [address]. PT DENIES DISCHARGE NEEDS, REPORTS THE [facility] WILL PICK HER UP FOR DISCHARGE HOME. IMPORTANT MESSAGE FROM MEDICARE PROVIDED AND EXPLAINED. Bargeman: Sean Pete DCPIA - Discharge Planning Initial Assessment Updated by [email or web address]: Sean Pete on 07/28/18 4:44 pm * Is the patient Alert and Oriented? Yes * How many steps to enter\exit or inside your home? NONE * PCP DR. CHEEMA * Pharmacy [facility] * Preadmission Environment [facility] * Facility Name [facility], * ADLs Partial Dependent * Partial ADLs (Assistance needed) Ambulation Bathing Dressing Medication Management Toileting Transfers * Equipment Other * Other Equipment ALL MEDICAL EQUIPMENT PROVIDED BY FACILITY * List name and contact numbers for known caregivers / representatives who currently or will assist patient after discharge: JASON GIBSON, SISTER, * Verbal permission to speak to the caregivers and representatives has been obtained from the patient. N/A * Community resources currently utilized Other * Please name any agencies selected above. OUTPATIENT DIALYSIS, [facility]TS, [facility], [address] [facility] * Additional services required to return to the preadmission environment? No * Can the patient safely return to the preadmission environment? Yes * Has this patient been hospitalized within the prior 30 days at any hospital? Yes External Providers External Provider: [facility] Next Contact Date: 08/01/2018 Service Request Date: Service Type: Resolution: Reviewer: Comments: Coverage Notice Reviewer: [id number] Clarence Pete Notice Issued Date-Time: 07/28/2018 16:30 Notice Type: IM Discharge Notice Notice Delivered To: Patient Relationship to Patient: Supervisor Wood Crew Name: Delivery Method: HAND - Hand Delivered [place] Days: Prior Verbal Notification: Recipient Understood Notice: Yes Recipient Signature: Yes Med Rec Note Co-signed by Attending: Coverage Notice Comment: Last DP export: 07/28/18 3:48 p Patient Name: GLEN CONNER Page 52824 at 1119 All edits/amendments must be made on the electronic document DICTATION DATE: 07/29/181117 SOCIAL WELFARE ADMINISTRATOR: KRISTIE 07/29/181117 RPT#: [id number] DC DATE: STATUS: ADM IN [facility] [address] [place] [address] END OF REPORT
[~2018-07-20 15:06] MED LIST changes: -BASAGLAR K100 UNIT/1; +BASAGLAR K100 UNIT/1 SC
[2018-07-20 16:00] VITALS: BP 113/20
[2018-07-20 16:29] VITALS: BMI 38.5
[2018-07-20 19:03] LABS: ALBUMIN 2.2 g/dL (3.4-5.0); ANION GAP 11.1 mmol/L (8-16); BILIRUBIN - TOTAL 0.41 mg/dL (0.2-1.3); CALCIUM 8.4 mg/dL (8.5-10.1); CREATININE - SERUM 4.2 mg/dL (0.6-1.3); MAGNESIUM - SERUM 2.4 mg/dL (1.8-2.4); PHOSPHOROUS 3.9 mg/dL (2.5-4.9); POTASSIUM - SERUM 4.1 mmol/L (3.5-5.1); PROTEIN - SERUM 6.8 g/dL (6.4-8.2)
[2018-07-20 19:11] LABS: INR 1.25 (0.85-1.17); PROTIME 15.1 SECONDS (11.6-15.0)
[2018-07-20 21:23] LABS: BASOPHILS 0.5 % (0-2); EOSINOPHILS 1.8 % (0-7); HEMOGLOBIN 9.4 g/dL (12-16); IMMATURE GRANULOCYTES 1.2 % (0-5); LYMPHOCYTES 8.1 % (15-50); MCH 29.5 pg (26.0-34.0); MCHC 31.3 g/dL (31.0-37.0); MEAN PLATELET VOLUME 11.3 fL (7.4-10.4); MONOCYTES 12.6 % (2-11); NEUTROPHILS 75.8 % (40-80); PLATELET COUNT 154 10x3/uL (130-400); RBC 3.19 10x6/uL (4.00-5.40); RDW 15.7 % (11.5-14.5); WBC 10.2 10x3/uL (4.8-10.8)
[2018-07-20 21:30] VITALS: BP 135/42
[2018-07-21 00:57] VITALS: BP 111/42
[2018-07-21 05:32] VITALS: BP 133/45
[2018-07-21 08:01] VITALS: BP 119/30
[2018-07-21 10:23] VITALS: Ht 157.5 cm; Wt 87.0 kg
[2018-07-21 15:20] VITALS: BP 129/28
[2018-07-21 21:34] VITALS: BP 135/46
[2018-07-22 01:20] VITALS: BP 126/31
[2018-07-22 06:38] VITALS: BP 134/43
[2018-07-22 07:29] LABS: BASOPHILS 0.5 % (0-2); EOSINOPHILS 1.6 % (0-7); HEMATOCRIT 29.7 % (36.0-48.0); HEMOGLOBIN 9.4 g/dL (12-16); IMMATURE GRANULOCYTES 0.9 % (0-5); LYMPHOCYTES 7.8 % (15-50); MCHC 31.6 g/dL (31.0-37.0); MCV 94.9 fL (80.0-100.0); MEAN PLATELET VOLUME 9.6 fL (7.4-10.4); MONOCYTES 10.1 % (2-11); NEUTROPHILS 79.1 % (40-80); PLATELET COUNT 177 10x3/uL (130-400); RBC 3.13 10x6/uL (4.00-5.40); RDW 15.9 % (11.5-14.5); WBC 10.6 10x3/uL (4.8-10.8)
[2018-07-22 07:43] LABS: ANION GAP 9.8 mmol/L (8-16); CALCIUM 7.8 mg/dL (8.5-10.1); CARBON DIOXIDE 27.9 mmol/L (21.0-32.0); CREATININE - SERUM 3.3 mg/dL (0.6-1.3); PHOSPHOROUS 3.3 mg/dL (2.5-4.9); POTASSIUM - SERUM 3.7 mmol/L (3.5-5.1); VANCOMYCIN - RANDOM 20.4 ug/mL (10.0-20.0)
[2018-07-22 09:41] VITALS: BP 117/31
[2018-07-22 13:11] VITALS: BP 129/81
[2018-07-22 16:47] VITALS: BP 145/47
[2018-07-22 20:00] VITALS: BP 135/43
[2018-07-23] VITALS: BP 153/69
[2018-07-23 04:00] VITALS: BP 143/48
[2018-07-23 05:24] LABS: ANION GAP 13.4 mmol/L (8-16); CALCIUM 7.9 mg/dL (8.5-10.1); CARBON DIOXIDE 25.6 mmol/L (21.0-32.0); PHOSPHOROUS 3.5 mg/dL (2.5-4.9)
[2018-07-23 08:35] LABS: BASOPHILS 0.4 % (0-2); EOSINOPHILS 2.1 % (0-7); HEMATOCRIT 29.9 % (36.0-48.0); HEMOGLOBIN 9.4 g/dL (12-16); LYMPHOCYTES 8.7 % (15-50); MCH 29.6 pg (26.0-34.0); MCHC 31.4 g/dL (31.0-37.0); MEAN PLATELET VOLUME 10.4 fL (7.4-10.4); MONOCYTES 6.6 % (2-11); NEUTROPHILS 81.2 % (40-80); PLATELET COUNT 148 10x3/uL (130-400); RBC 3.18 10x6/uL (4.00-5.40); RDW 15.5 % (11.5-14.5); WBC 9.7 10x3/uL (4.8-10.8)
[2018-07-23 09:50] VITALS: BP 116/58
[2018-07-23 16:40] VITALS: BP 102/66
[2018-07-23 20:00] VITALS: BP 164/53
[2018-07-24] VITALS: BP 124/38
[2018-07-24 04:00] VITALS: BP 138/55
[2018-07-24 06:45] LABS: BASOPHILS 0.5 % (0-2); EOSINOPHILS 1.6 % (0-7); HEMATOCRIT 33.1 % (36.0-48.0); HEMOGLOBIN 10.3 g/dL (12-16); IMMATURE GRANULOCYTES 1.2 % (0-5); LYMPHOCYTES 8.8 % (15-50); MCH 29.3 pg (26.0-34.0); MCHC 31.1 g/dL (31.0-37.0); MCV 94.3 fL (80.0-100.0); MEAN PLATELET VOLUME 11.5 fL (7.4-10.4); MONOCYTES 5.9 % (2-11); PLATELET COUNT 91 10x3/uL (130-400); RBC 3.51 10x6/uL (4.00-5.40); RDW 15.9 % (11.5-14.5); WBC 11.1 10x3/uL (4.8-10.8)
[2018-07-24 07:02] LABS: ANION GAP 11.7 mmol/L (8-16); CARBON DIOXIDE 27.3 mmol/L (21.0-32.0); CREATININE - SERUM 3.2 mg/dL (0.6-1.3); PHOSPHOROUS 3.4 mg/dL (2.5-4.9); VANCOMYCIN - RANDOM 21.1 ug/mL (10.0-20.0)
[2018-07-24 09:00] VITALS: BP 112/30
[2018-07-24 12:07] VITALS: BP 120/24
[2018-07-24 16:09] VITALS: BP 114/25
[2018-07-24 20:21] VITALS: BP 102/65
[2018-07-25 01:09] VITALS: BP 128/41
[2018-07-25 05:32] VITALS: BP 123/42
[2018-07-25 06:43] LABS: BASOPHILS 0.4 % (0-2); EOSINOPHILS 2.1 % (0-7); HEMATOCRIT 30.9 % (36.0-48.0); HEMOGLOBIN 9.6 g/dL (12-16); IMMATURE GRANULOCYTES 0.7 % (0-5); LYMPHOCYTES 7.7 % (15-50); MCH 29.4 pg (26.0-34.0); MCHC 31.1 g/dL (31.0-37.0); MCV 94.8 fL (80.0-100.0); MEAN PLATELET VOLUME 9.9 fL (7.4-10.4); MONOCYTES 8.2 % (2-11); NEUTROPHILS 80.9 % (40-80); RBC 3.26 10x6/uL (4.00-5.40); RDW 15.9 % (11.5-14.5); WBC 9.8 10x3/uL (4.8-10.8)
[2018-07-25 06:49] LABS: PLATELET COUNT 150 10x3/uL (130-400)
[2018-07-25 06:51] LABS: INR 1.19 (0.85-1.17); PROTIME 14.6 SECONDS (11.6-15.0)
[2018-07-25 07:02] LABS: ANION GAP 12.2 mmol/L (8-16); CALCIUM 8.5 mg/dL (8.5-10.1); CARBON DIOXIDE 28.7 mmol/L (21.0-32.0); PHOSPHOROUS 3.9 mg/dL (2.5-4.9); POTASSIUM - SERUM 3.9 mmol/L (3.5-5.1); VANCOMYCIN - RANDOM 19.9 ug/mL (10.0-20.0)
[2018-07-25 07:05] LABS: CREATININE - SERUM 4.1 mg/dL (0.6-1.3)
[2018-07-25 08:36] VITALS: BP 105/17
[2018-07-25 12:58] VITALS: BP 115/27
[2018-07-25 16:23] VITALS: BP 115/35
[2018-07-25 21:04] VITALS: BP 136/52
[2018-07-26] VITALS: BP 116/55
[2018-07-26 05:03] VITALS: BP 125/62
[2018-07-26 06:03] LABS: BASOPHILS 0.3 % (0-2); EOSINOPHILS 2.3 % (0-7); HEMATOCRIT 30.5 % (36.0-48.0); HEMOGLOBIN 9.6 g/dL (12-16); IMMATURE GRANULOCYTES 0.7 % (0-5); LYMPHOCYTES 9.2 % (15-50); MCH 29.7 pg (26.0-34.0); MCHC 31.5 g/dL (31.0-37.0); MCV 94.4 fL (80.0-100.0); MEAN PLATELET VOLUME 9.9 fL (7.4-10.4); MONOCYTES 6.1 % (2-11); NEUTROPHILS 81.4 % (40-80); PLATELET COUNT 140 10x3/uL (130-400); RBC 3.23 10x6/uL (4.00-5.40); WBC 10.6 10x3/uL (4.8-10.8)
[2018-07-26 06:50] LABS: ANION GAP 14.7 mmol/L (8-16); CARBON DIOXIDE 26.4 mmol/L (21.0-32.0); CREATININE - SERUM 5.1 mg/dL (0.6-1.3); PHOSPHOROUS 3.9 mg/dL (2.5-4.9); POTASSIUM - SERUM 4.1 mmol/L (3.5-5.1); VANCOMYCIN - RANDOM 18.9 ug/mL (10.0-20.0)
[2018-07-26 08:56] VITALS: BP 140/26
[2018-07-26 11:58] VITALS: BP 147/36
[2018-07-26 21:56] VITALS: BP 113/38
[2018-07-27] VITALS: BP 110/40
[2018-07-27 05:44] VITALS: BP 106/50
[2018-07-27 06:31] LABS: BASOPHILS 0.2 % (0-2); EOSINOPHILS 0.9 % (0-7); HEMATOCRIT 29.6 % (36.0-48.0); HEMOGLOBIN 9.2 g/dL (12-16); IMMATURE GRANULOCYTES 0.5 % (0-5); MCH 29.8 pg (26.0-34.0); MCHC 31.1 g/dL (31.0-37.0); MCV 95.8 fL (80.0-100.0); MEAN PLATELET VOLUME 10.5 fL (7.4-10.4); MONOCYTES 6.9 % (2-11); NEUTROPHILS 87.5 % (40-80); PLATELET COUNT 133 10x3/uL (130-400); RBC 3.09 10x6/uL (4.00-5.40); RDW 16.5 % (11.5-14.5); WBC 12.6 10x3/uL (4.8-10.8)
[2018-07-27 06:55] LABS: CALCIUM 8.2 mg/dL (8.5-10.1); CARBON DIOXIDE 26.1 mmol/L (21.0-32.0); CREATININE - SERUM 3.2 mg/dL (0.6-1.3); VANCOMYCIN - RANDOM 20.5 ug/mL (10.0-20.0)
[2018-07-27 07:10] LABS: ANION GAP 14.1 mmol/L (8-16); POTASSIUM - SERUM 4.2 mmol/L (3.5-5.1)
[2018-07-27 08:33] VITALS: BP 118/40
[2018-07-27 09:19] LABS: HEPATITIS C ANTIBODY 0.1 S/CO RAT (0.0-0.9)
[2018-07-27 13:45] VITALS: BP 98/40
[2018-07-27 16:10] VITALS: BP 114/50
[2018-07-27 20:00] VITALS: BP 119/41
[2018-07-28] VITALS: BP 122/45
[2018-07-28 04:00] VITALS: BP 122/37
[2018-07-28 05:59] LABS: BASOPHILS 0.5 % (0-2); HEMATOCRIT 27.6 % (36.0-48.0); HEMOGLOBIN 8.7 g/dL (12-16); IMMATURE GRANULOCYTES 0.6 % (0-5); LYMPHOCYTES 10.6 % (15-50); MCH 29.8 pg (26.0-34.0); MCHC 31.5 g/dL (31.0-37.0); MCV 94.5 fL (80.0-100.0); MEAN PLATELET VOLUME 10.4 fL (7.4-10.4); MONOCYTES 9.7 % (2-11); NEUTROPHILS 75.6 % (40-80); PLATELET COUNT 118 10x3/uL (130-400); RBC 2.92 10x6/uL (4.00-5.40); RDW 16.4 % (11.5-14.5)
[2018-07-28 06:15] LABS: CALCIUM 8.4 mg/dL (8.5-10.1); CARBON DIOXIDE 27.3 mmol/L (21.0-32.0); PHOSPHOROUS 4.2 mg/dL (2.5-4.9); POTASSIUM - SERUM 4.3 mmol/L (3.5-5.1); VANCOMYCIN - RANDOM 17.8 ug/mL (10.0-20.0)
[2018-07-28 06:20] LABS: CREATININE - SERUM 4.1 mg/dL (0.6-1.3)
[2018-07-28 08:17] VITALS: BP 116/23
[2018-07-28 20:00] VITALS: BP 132/37
[2018-07-29] VITALS (7 sets, daily range): BP systolic 119–139; BP diastolic 36–47
[2018-07-29 06:58] LABS: BASOPHILS 0.2 % (0-2); EOSINOPHILS 2.6 % (0-7); HEMATOCRIT 27.5 % (36.0-48.0); HEMOGLOBIN 8.6 g/dL (12-16); IMMATURE GRANULOCYTES 0.5 % (0-5); LYMPHOCYTES 8.9 % (15-50); MCH 29.5 pg (26.0-34.0); MCHC 31.3 g/dL (31.0-37.0); MCV 94.2 fL (80.0-100.0); MEAN PLATELET VOLUME 9.9 fL (7.4-10.4); MONOCYTES 9.9 % (2-11); NEUTROPHILS 77.9 % (40-80); PLATELET COUNT 117 10x3/uL (130-400); RBC 2.92 10x6/uL (4.00-5.40); WBC 8.4 10x3/uL (4.8-10.8)
[2018-07-29 07:12] LABS: ANION GAP 11.9 mmol/L (8-16); CARBON DIOXIDE 27.7 mmol/L (21.0-32.0)
[2018-07-29 07:13] LABS: PHOSPHOROUS 3.1 mg/dL (2.5-4.9)
[2018-07-29 07:14] LABS: CREATININE - SERUM 2.9 mg/dL (0.6-1.3); POTASSIUM - SERUM 3.6 mmol/L (3.5-5.1)
[2018-07-30 04:00] VITALS: BP 123/40
[2018-07-30 07:06] LABS: BASOPHILS 0.5 % (0-2); EOSINOPHILS 3.8 % (0-7); HEMOGLOBIN 8.4 g/dL (12-16); IMMATURE GRANULOCYTES 0.6 % (0-5); MCH 29.5 pg (26.0-34.0); MCHC 31.1 g/dL (31.0-37.0); MCV 94.7 fL (80.0-100.0); MEAN PLATELET VOLUME 10.3 fL (7.4-10.4); MONOCYTES 11.6 % (2-11); NEUTROPHILS 74.5 % (40-80); PLATELET COUNT 131 10x3/uL (130-400); RBC 2.85 10x6/uL (4.00-5.40); RDW 16.2 % (11.5-14.5); WBC 6.7 10x3/uL (4.8-10.8)
[2018-07-30 07:21] LABS: ANION GAP 10.9 mmol/L (8-16); CALCIUM 8.3 mg/dL (8.5-10.1); CARBON DIOXIDE 27.8 mmol/L (21.0-32.0); POTASSIUM - SERUM 3.7 mmol/L (3.5-5.1); VANCOMYCIN - RANDOM 21.3 ug/mL (10.0-20.0)
[2018-07-30 07:22] LABS: CREATININE - SERUM 3.7 mg/dL (0.6-1.3)
[2018-07-30 07:29] VITALS: BP 135/31
[2018-07-30 11:07] VITALS: BP 127/38
[2018-07-30 20:30] VITALS: BP 147/40
[2018-07-31 00:30] VITALS: BP 133/40
[2018-07-31 04:30] VITALS: BP 131/40
[2018-07-31 05:19] LABS: BASOPHILS 0.4 % (0-2); EOSINOPHILS 3.6 % (0-7); HEMATOCRIT 28.3 % (36.0-48.0); HEMOGLOBIN 8.9 g/dL (12-16); IMMATURE GRANULOCYTES 0.5 % (0-5); LYMPHOCYTES 7.1 % (15-50); MCH 29.8 pg (26.0-34.0); MCHC 31.4 g/dL (31.0-37.0); MCV 94.6 fL (80.0-100.0); MEAN PLATELET VOLUME 10.3 fL (7.4-10.4); MONOCYTES 11.1 % (2-11); NEUTROPHILS 77.3 % (40-80); PLATELET COUNT 143 10x3/uL (130-400); RBC 2.99 10x6/uL (4.00-5.40); RDW 16.3 % (11.5-14.5); WBC 9.5 10x3/uL (4.8-10.8)
[2018-07-31 06:15] LABS: ANION GAP 11.7 mmol/L (8-16); CALCIUM 8.4 mg/dL (8.5-10.1); CARBON DIOXIDE 26.8 mmol/L (21.0-32.0); CREATININE - SERUM 3.3 mg/dL (0.6-1.3); PHOSPHOROUS 3.6 mg/dL (2.5-4.9); POTASSIUM - SERUM 3.5 mmol/L (3.5-5.1); VANCOMYCIN - RANDOM 20.8 ug/mL (10.0-20.0)
[2018-07-31 08:38] VITALS: BP 103/34
[2018-07-31 12:19] VITALS: BP 115/33
[2018-07-31 20:30] VITALS: BP 126/40
[2018-08-01] VITALS: BP 116/32
[2018-08-01 04:00] VITALS: BP 111/25
[2018-08-01 08:55] VITALS: BP 139/49
[2018-08-01 13:46] VITALS: BP 112/51
[2018-08-01 17:36] VITALS: BP 132/42
[2018-08-01 20:00] VITALS: BP 140/39
[2018-08-02] VITALS: BP 130/34
[2018-08-02 04:00] VITALS: BP 123/33
[2018-08-02 05:52] LABS: BASOPHILS 0.5 % (0-2); EOSINOPHILS 4.1 % (0-7); HEMATOCRIT 27.1 % (36.0-48.0); HEMOGLOBIN 8.5 g/dL (12-16); IMMATURE GRANULOCYTES 0.5 % (0-5); LYMPHOCYTES 7.8 % (15-50); MCH 29.7 pg (26.0-34.0); MCHC 31.4 g/dL (31.0-37.0); MCV 94.8 fL (80.0-100.0); MEAN PLATELET VOLUME 9.9 fL (7.4-10.4); MONOCYTES 11.9 % (2-11); NEUTROPHILS 75.2 % (40-80); PLATELET COUNT 137 10x3/uL (130-400); RBC 2.86 10x6/uL (4.00-5.40); RDW 16.4 % (11.5-14.5); WBC 8.5 10x3/uL (4.8-10.8)
[2018-08-02 06:11] LABS: ANION GAP 12.5 mmol/L (8-16); CALCIUM 7.6 mg/dL (8.5-10.1); POTASSIUM - SERUM 3.5 mmol/L (3.5-5.1); VANCOMYCIN - RANDOM 28.2 ug/mL (10.0-20.0)
[2018-08-02 06:12] LABS: CREATININE - SERUM 4.4 mg/dL (0.6-1.3)
[2018-08-02 07:45] VITALS: BP 104/26
[2018-08-02 20:00] VITALS: BP 133/41
[2018-08-03] VITALS: BP 91/49
[2018-08-03 05:30] VITALS: BP 115/43
[2018-08-03 05:38] LABS: ANION GAP 12.1 mmol/L (8-16); CALCIUM 7.5 mg/dL (8.5-10.1); CARBON DIOXIDE 27.3 mmol/L (21.0-32.0); POTASSIUM - SERUM 3.4 mmol/L (3.5-5.1); VANCOMYCIN - RANDOM 23.7 ug/mL (10.0-20.0)
[2018-08-03 05:39] LABS: CREATININE - SERUM 2.7 mg/dL (0.6-1.3)
[2018-08-03] MEDS ORDERED: Nystatin Oral Susp [ PO (06:58)
[2018-08-03] MEDS ORDERED: OMNICEF300 MG PO (06:58)
[2018-08-03 06:59] LABS: BASOPHILS 0.5 % (0-2); EOSINOPHILS 3.8 % (0-7); HEMATOCRIT 27.4 % (36.0-48.0); HEMOGLOBIN 8.5 g/dL (12-16); IMMATURE GRANULOCYTES 0.5 % (0-5); LYMPHOCYTES 7.8 % (15-50); MCH 29.6 pg (26.0-34.0); MCV 95.5 fL (80.0-100.0); MEAN PLATELET VOLUME 10.4 fL (7.4-10.4); MONOCYTES 12.6 % (2-11); NEUTROPHILS 74.8 % (40-80); PLATELET COUNT 127 10x3/uL (130-400); RBC 2.87 10x6/uL (4.00-5.40); RDW 16.5 % (11.5-14.5); WBC 7.4 10x3/uL (4.8-10.8)
[2018-08-03 07:52] VITALS: BP 101/23
[2018-08-03 11:30] VITALS: BP 114/21
== END 2018-08-03 14:52 | DRG 252 ==
LOC: D.M2 15:06 → D.SDCHOLD 15:06 → D.M2 15:15
PROVIDERS: Internal Medicine Nephrology; Surgery
PROC: 03PY0JZ Removal of Synthetic Substitute from Upper Artery, Open Approach (ICD-10-PCS; 2018-07-26)
PROC: 02H633Z Insertion of Infusion Device into Right Atrium, Percutaneous Approach (ICD-10-PCS; 2018-07-26)
PROC: 05PY0JZ Removal of Synthetic Substitute from Upper Vein, Open Approach (ICD-10-PCS; principal; 2018-07-26 15:00)
PROC: 0JBG0ZZ Excision of Right Lower Arm Subcutaneous Tissue and Fascia, Open Approach (ICD-10-PCS; 2018-07-26 15:00)
DX: T82.7XXA Infection and inflammatory reaction due to other cardiac and vascular devices, implants and grafts, initial encounter (principal); N18.6 End stage renal disease; I13.2 Hypertensive heart and chronic kidney disease with heart failure and with stage 5 chronic kidney disease, or end stage renal disease; Z68.41 Body mass index [BMI] 40.0-44.9, adult; Y83.8 Other surgical procedures as the cause of abnormal reaction of the patient, or of later complication, without mention of misadventure at the time of the procedure; E11.22 Type 2 diabetes mellitus with diabetic chronic kidney disease; E11.65 Type 2 diabetes mellitus with hyperglycemia; I50.9 Heart failure, unspecified; Z99.2 Dependence on renal dialysis; M81.0 Age-related osteoporosis without current pathological fracture; M06.9 Rheumatoid arthritis, unspecified; E03.9 Hypothyroidism, unspecified; D64.9 Anemia, unspecified; E66.01 Morbid (severe) obesity due to excess calories; B96.4 Proteus (mirabilis) (morganii) as the cause of diseases classified elsewhere